=== PATIENT | female | born 1970 | race Caucasian/White ===

== ENCOUNTER 2017-12-02 18:03 | Observation (INO) | payer SELFPAY ==
[~2017-12-02] VITALS: Ht 149.9 cm; Wt 59.0 kg
[~2017-12-02 18:03] MED LIST: FIBER PO; OMEPRAZOLE40 MG PO; VITAMIN B12 INJ; VITAMIN D5000 UNIT PO
[2017-12-02] MEDS ORDERED: SODIUM CHLORIDE 0.9% 1000ML 1,000 ML IV STA (18:18)
[2017-12-02] MEDS ORDERED: MORPHINE SULFATE INJ 4 MG/ML INJ IV STA (18:18)
[2017-12-02] MEDS ORDERED: IBUPROFEN 400 MG TAB PO STA (18:18)
[2017-12-02] MEDS ORDERED: ONDANSETRON HCL INJ 2 MG/ML VIAL IV STA (18:18)
[2017-12-02] MEDS ORDERED: LIDOCAINE VISC 2% SOLN 15 ML UDC PO ONE (18:30)
[2017-12-02] MEDS ORDERED: MAGNESIUM/ALUMINUM/SIMETHICONE 30 ML UDC PO ONE (18:30)
--- NOTE | 2017-12-02 18:45 | Diagnostic Imaging Report ---
PROCEDURE: A single AP view of the chest. COMPARISON: None. INDICATIONS: EPIGASTRIC PAIN FEW DAYS, BLOATING FINDINGS: Lines/tubes: None. Lungs: The lungs are well inflated and clear. There is no evidence of pneumonia or pulmonary edema. Pleura: There is no pleural effusion or pneumothorax. Heart and mediastinum: The heart and the mediastinum are unremarkable. Bones: No acute bony abnormality. IMPRESSION: 1. No acute cardiopulmonary abnormalities. Zachary Joshua M.D. Dictated by: Zachary Joshua M.D. on 12/02/2017 at 18:50 Electronically approved by: Zachary Joshua M.D. on 12/02/2017 at 18:50
[2017-12-02 19:01] LABS: BASOPHILS # (AUTO) 0.1 (0.0-0.1); BASOPHILS % 0.5 % (0.0-1.0); EOSINOPHILS # (AUTO) 0.2 (0.0-0.4); EOSINOPHILS % 1.8 % (0.0-6.0); HEMATOCRIT 41.7 % (34.2-44.1); HEMOGLOBIN 14.9 g/dL (12.0-16.0); LYMPHOCYTES # (AUTO) 2.1 (1.0-3.2); LYMPHOCYTES % 20.3 % (18.0-39.1); MEAN CORPUSCULAR HEMOGLOBIN 40.9 pg (28-32); MEAN CORPUSCULAR HGB CONC 35.7 g/dL (31-35); MEAN CORPUSCULAR VOLUME 114.6 fL (81-99); MONOCYTES # (AUTO) 0.7 (0.2-0.8); MONOCYTES % 6.5 % (4.4-11.3); NEUTROPHILS # (AUTO) 7.3 (2.1-6.9); NEUTROPHILS % 70.5 % (38.7-80.0); PLATELET COUNT 280 x10e3/uL (140-360); RED BLOOD COUNT 3.64 x10e6/uL (3.6-5.1); RED CELL DISTRIBUTION WIDTH 12.7 % (11.7-14.4)
[2017-12-02 19:08] LABS: CLARITY,URINE HAZY (CLEAR); COLOR,URINE AMBER (YELLOW)
[2017-12-02 19:09] LABS: BILIRUBIN,URINE 2+ (NEGATIVE); KETONES,URINE 1+ (NEGATIVE); LEUKOCYTE ESTERASE ,URINE NEGATIVE (NEGATIVE); NITRITE,URINE NEGATIVE (NEGATIVE); PROTEIN,URINE DIPSTICK TRACE (NEGATIVE); URINE UROBILINOGEN 1 mg/dL (0.2 - 1)
[2017-12-02 19:10] LABS: PREGNANCY TEST, URINE NEGATIVE (NEGATIVE)
[2017-12-02 19:16] LABS: INR 1.02; PROTHROMBIN TIME 12.6 seconds (11.9-14.5)
[2017-12-02 19:17] LABS: PARTIAL THROMBOPLASTIN TIME 25.2 seconds (23.8-35.5)
[2017-12-02 19:17] LABS: EPITHELIAL CELLS,URINE MANY /LPF
[2017-12-02 19:18] LABS: BACTERIA,URINE MODERATE /HPF; RBC,URINE 0-5 /HPF (0-5); WBC,URINE (MAN) 0-5 /HPF (0-5)
[2017-12-02 20:30] LABS: ALANINE AMINOTRANSFERASE 104 IU/L (0-55); ALBUMIN 3.3 g/dL (3.5-5.0); ALBUMIN/GLOBULIN RATIO 0.9 (0.8-2.0); ALKALINE PHOSPHATASE 102 IU/L (40-150); AMYLASE 67 U/L (25-125); BLOOD UREA NITROGEN 6 mg/dL (7-26); BUN/CREATININE RATIO 9 (6-25); CARBON DIOXIDE 28 mmol/L (22-29); CHLORIDE 98 mmol/L (98-107); CREATINE KINASE 50 IU/L (29-168); CREATININE, SERUM 0.68 mg/dL (0.57-1.11); EST GLOMERULAR FILTRATION RATE > 60 ML/MIN (60-); GLUCOSE 97 mg/dL (74-118); LIPASE 164 U/L (8-78); SODIUM 140 mmol/L (136-145)
[2017-12-02] MEDS: BELLADONNA ALK/PHENOBARBITAL 5 ML UDC PO SCH (21:07)
--- NOTE | 2017-12-02 21:47 | Diagnostic Imaging Report ---
EXAM: Right Upper Quadrant Ultrasound INDICATION: Abdominal pain COMPARISON: None. TECHNIQUE: Transverse and longitudinal images of the right upper abdomen were obtained. FINDINGS: Liver: Size: 16.2 cm in the right midclavicular line, large Appearance: Increased echogenicity, smooth contour Mass: No focal masses Gallbladder: Stones/Sludge: None Wall: 0.2 cm Appearance: No wall thickening, pericholecystic fluid or hydrops. Sonographic Davies's Sign: Negative Bile Ducts: Intrahepatic Ducts: No dilatation Extrahepatic Ducts: Common bile duct measures 0.3 cm, no dilatation Pancreas: Visualized portions of the pancreatic head, neck and proximal body are normal. Kidneys: Length: Right 8.4 cm Echogenicity: Normal Collecting System: No hydronephrosis Stone: None Cyst/Mass: None Vessels: Aorta: Visualized portions are normal Inferior Vena Cava: Visualized portions are normal Main Portal Vein: 0.8 cm, normal size with hepatopetal flow. Free Fluid: No ascites or pleural effusion IMPRESSION: Hepatomegaly and diffuse hepatic steatosis. Signed by: Dr. Roly Moseley M.D. on 12/02/2017 9:44 PM
[2017-12-02] MEDS ORDERED: SODIUM CHLORIDE 0.9% 50ML 50 ML ONE (22:35)
[2017-12-02] MEDS ORDERED: IOPAMIDOL 370 MG/ML 200 ML INFUS..BTL INJ ONE (22:35)
--- NOTE | 2017-12-02 22:38 | Diagnostic Imaging Report ---
EXAM: CT Abdomen and Pelvis WITH contrast INDICATION: DrSammi Otitis/appendicitis/cholecystitis. COMPARISON: None. TECHNIQUE: Abdomen and pelvis were scanned utilizing a multidetector helical scanner from the lung base to the pubic symphysis after administration of IV contrast. Coronal and sagittal reformations were obtained. Routine protocol was performed. Scan was performed when during portal venous phase. IV CONTRAST: 100 mL of Isovue-370 ORAL CONTRAST: Water RADIATION DOSE: Total DLP: 255.1 mGy*cm Estimated effective dose: (DLP x 0.015 x size factor) mSv COMPLICATIONS: None FINDINGS: LINES and TUBES: None. LOWER THORAX: Unremarkable HEPATOBILIARY: The liver is diffuse hypodense compared to the spleen, consistent with diffuse hepatic diffuse hepatic steatosis. No focal hepatic lesions. No biliary ductal dilation. GALLBLADDER: No radio-opaque stones or sludge. No wall thickening. SPLEEN: No splenomegaly. PANCREAS: No focal masses or ductal dilatation. Minimal peripancreatic (head of the pancreas) and periduodenal fat stranding. ADRENALS: No adrenal nodules KIDNEYS/URETERS: Kidneys enhance symmetrically. No hydronephrosis. No cystic or solid mass lesions. No stones. GI TRACT: No abnormal distention, wall thickening, or evidence of bowel obstruction. Appendix is normal. PELVIC ORGANS/BLADDER: Unremarkable. LYMPH NODES: No lymphadenopathy. VESSELS: Unremarkable. PERITONEUM / RETROPERITONEUM: Periduodenal fat stranding. No evidence of free peritoneal fluid or air. BONES: Unremarkable. SOFT TISSUES: Unremarkable. IMPRESSION: 1. Diffuse hepatic steatosis. 2. Subtle chris duodenal fat stranding that extends along the pancreaticoduodenal groove is suggestive of inflammatory process. These can be seen on patients with early edematous pancreatitis or duodenitis. Signed by: Dr. Roly Moseley M.D. on 12/02/2017 10:35 PM
[2017-12-02] MEDS ORDERED: ONDANSETRON HCL INJ 2 MG/ML VIAL IV PRN (23:00)
[2017-12-02] MEDS ORDERED: HYDROMORPHONE 1MG/1ML INJ IV PRN (23:00)
[2017-12-02] MEDS ORDERED: POTASSIUM CHLORIDE 20MEQ/100ML 100 ML IV STA ×2 (23:56)
[2017-12-03] VITALS (7 sets, daily range): BP systolic 125–167; BP diastolic 79–96
[2017-12-03 05:06] LABS: BASOPHILS % 0.5 % (0.0-1.0); EOSINOPHILS # (AUTO) 0.4 (0.0-0.4); HEMATOCRIT 34.4 % (34.2-44.1); HEMOGLOBIN 12.3 g/dL (12.0-16.0); LYMPHOCYTES # (AUTO) 2.2 (1.0-3.2); LYMPHOCYTES % 28.5 % (18.0-39.1); MEAN CORPUSCULAR HEMOGLOBIN 41.1 pg (28-32); MEAN CORPUSCULAR HGB CONC 35.8 g/dL (31-35); MEAN CORPUSCULAR VOLUME 115.1 fL (81-99); MONOCYTES # (AUTO) 0.6 (0.2-0.8); MONOCYTES % 7.8 % (4.4-11.3); NEUTROPHILS # (AUTO) 4.4 (2.1-6.9); NEUTROPHILS % 57.8 % (38.7-80.0); PLATELET COUNT 222 x10e3/uL (140-360); RED BLOOD COUNT 2.99 x10e6/uL (3.6-5.1); RED CELL DISTRIBUTION WIDTH 12.6 % (11.7-14.4)
[2017-12-03 05:39] LABS: ALANINE AMINOTRANSFERASE 68 IU/L (0-55); ALBUMIN 2.5 g/dL (3.5-5.0); ALKALINE PHOSPHATASE 74 IU/L (40-150); AMYLASE 56 U/L (25-125); ANION GAP 13.5 mmol/L (8-16); BLOOD UREA NITROGEN 6 mg/dL (7-26); BUN/CREATININE RATIO 10 (6-25); CALCIUM 7.5 mg/dL (8.4-10.2); CARBON DIOXIDE 26 mmol/L (22-29); CHLORIDE 103 mmol/L (98-107); CREATININE, SERUM 0.59 mg/dL (0.57-1.11); EST GLOMERULAR FILTRATION RATE > 60 ML/MIN (60-); GLUCOSE 82 mg/dL (74-118); LIPASE 110 U/L (8-78); POTASSIUM 3.5 mmol/L (3.5-5.1); SODIUM 139 mmol/L (136-145)
[2017-12-03 06:51] LABS: ALBUMIN 2.5 g/dL (3.5-5.0); BILIRUBIN,DIRECT 0.7 mg/dL (0.0-0.5); CHOL/HDL RATIO 4.9 (3.0-3.6)
--- NOTE | 2017-12-03 08:09 | History and Physical ---
PRIMARY CARE PHYSICIAN: Unknown. CHIEF COMPLAINT: Epigastric pain times 1 day. HISTORY OF PRESENT ILLNESS: This is a 47-year-old woman with a history of alcohol use, about 3 to 4 beers a day, now transitioning to mixed drinks daily, developing epigastric pain. She was found to have acute pancreatitis. Also had elevated LFTs. Imaging of the liver and gallbladder is still pending. Initial CT scan did not show any gallstones. She was admitted for further evaluation and management. PAST MEDICAL HISTORY: Alcohol abuse. Cigarette abuse. GERD. PAST SURGICAL HISTORY: , tubal ligation. ALLERGIES: PER ELECTRONIC MEDICAL RECORD. FAMILY/SOCIAL HISTORY: The patient drinks alcohol daily, about 3 to 4 beers a day, and now using mixed drinks. Also, smokes 2 pack of cigarettes per day. MEDICATIONS: Per electronic medical record. REVIEW OF SYSTEMS: Denies any dizziness, chest pain, shortness of breath, fever, chills, sweats, nausea, vomiting, diarrhea, leg pain, back pain. PHYSICAL EXAMINATION VITAL SIGNS: Have been reviewed. GENERAL APPEARANCE: A tired-appearing woman resting in bed. HEENT: Anicteric. Pupils are responsive to light. No oral lesions. CARDIOVASCULAR: Normal S1 and S2. LUNGS: Moderate breath sounds. ABDOMEN: Soft, nondistended. She has minimal tenderness in the epigastrium. Davies sign is negative. EXTREMITIES: No edema. SKIN: Dry. PSYCHIATRIC: Normal affect. LABS: Reviewed. MEDICATIONS: Reviewed. ASSESSMENT: This is a 47-year-old woman. 1. Acute pancreatitis. 2. Hypokalemia. 3. Acute transaminitis. 4. Hepatomegaly. 5. Alcoholic pancreatitis. 6. Cigarette abuse. 7. Gastroesophageal reflux disease. PLAN 1. Rehydrate patient. 2. Follow up enzymes. 3. Follow up MRCP/ultrasound. 4. Counseling on alcohol reduction or cessation. 5. Consider nicotine patch. 6. Restart PPI. 7. Prophylaxis: Use SCD. 8. Disposition: Keep n.p.o. and follow up labs. Job#: [id number]
[2017-12-03] MEDS: SODIUM CHLORIDE 0.9% 1000ML 1,000 ML IV SCH ×6 (08:17→20:33)
[2017-12-03] MEDS: PANTOPRAZOLE 40 MG 10ML VIAL IV SCH (08:17)
[2017-12-03] MEDS: BELLADONNA ALK/PHENOBARBITAL 5 ML UDC PO SCH ×3 (08:21→20:33)
[2017-12-04] VITALS (7 sets, daily range): BP systolic 138–167; BP diastolic 70–96
[2017-12-04] MEDS: SODIUM CHLORIDE 0.9% 1000ML 1,000 ML IV SCH ×3 (00:47→08:34)
[2017-12-04 07:17] LABS: POTASSIUM 3.7 mmol/L (3.5-5.1)
[2017-12-04] MEDS: PANTOPRAZOLE 40 MG 10ML VIAL IV SCH (08:33)
[2017-12-04] MEDS: BELLADONNA ALK/PHENOBARBITAL 5 ML UDC PO SCH ×2 (08:33→15:24)
[2017-12-04] MEDS ORDERED: ZOFRAN ODT4 MG PO (15:43)
== END 2017-12-04 18:45 | disposition home or self-care (01) ==
LOC: ER 18:03 → ERHOLD 22:48 → IMCU 12-03 00:30
PROVIDERS: ADMIT Internal Medicine; ATTEND Internal Medicine
DX: K85.20 Alcohol induced acute pancreatitis without necrosis or infection (principal); F10.10 Alcohol abuse, uncomplicated; E87.6 Hypokalemia; R74.0 Nonspecific elevation of levels of transaminase and lactic acid dehydrogenase [LDH]; R16.0 Hepatomegaly, not elsewhere classified; K21.9 Gastro-esophageal reflux disease without esophagitis; Z72.0 Tobacco use
CPT/HCPCS: 36415 ×3; 71045; 74177; 76705; 80053 ×2; 80061; 80076; 81001; 81025; 82150 ×2; 82550; 82553; 83690 ×3; 84132; 84484; 85025 ×2; 85610; 85730; 87086; 93005; 99284; G0378 ×3; J2270; J2405; J3480 ×2; J7030 ×3; Q9967

== ENCOUNTER 2018-03-17 09:15 | Inpatient (IN) | payer OTHER ==
[~2018-03-17] VITALS: Ht 149.9 cm; Wt 76.4 kg
[~2018-03-17 09:15] MED LIST changes: +ZOFRAN ODT4 MG PO
[2018-03-17] MEDS ORDERED: PANTOPRAZOLE 40 MG 10ML VIAL IV STA (09:29)
[2018-03-17] MEDS ORDERED: ONDANSETRON HCL INJ 2 MG/ML VIAL IV STA (09:29)
[2018-03-17] MEDS ORDERED: SODIUM CHLORIDE 0.9% 1000ML 1,000 ML IV STA ×2 (09:29→10:18)
[2018-03-17] MEDS ORDERED: MORPHINE SULFATE 2 MG/ML SYR IV STA (09:29)
[2018-03-17 09:52] LABS: BASOPHILS % 0.9 % (0.0-1.0); EOSINOPHILS # (AUTO) 0.3 (0.0-0.4); EOSINOPHILS % 6.1 % (0.0-6.0); HEMATOCRIT 35.9 % (34.2-44.1); HEMOGLOBIN 13.4 g/dL (12.0-16.0); LYMPHOCYTES # (AUTO) 1.9 (1.0-3.2); LYMPHOCYTES % 42.4 % (18.0-39.1); MEAN CORPUSCULAR HEMOGLOBIN 44.2 pg (28-32); MEAN CORPUSCULAR HGB CONC 37.3 g/dL (31-35); MEAN CORPUSCULAR VOLUME 118.5 fL (81-99); MONOCYTES # (AUTO) 0.3 (0.2-0.8); MONOCYTES % 7.2 % (4.4-11.3); NEUTROPHILS % 43.2 % (38.7-80.0); PLATELET COUNT 252 x10e3/uL (140-360); RED BLOOD COUNT 3.03 x10e6/uL (3.6-5.1); RED CELL DISTRIBUTION WIDTH 16.2 % (11.7-14.4)
--- NOTE | 2018-03-17 09:59 | Diagnostic Imaging Report ---
PROCEDURE: CHEST SINGLE (PORTABLE) COMPARISON: Patients [facility], DX, CHEST SINGLE (PORTABLE), 12/02/2017, 18:33. INDICATIONS: SHORTNESS OF BREATH, COUGH, CHEST PAIN FINDINGS: LUNGS: No consolidations or edema. PLEURA: No effusions or pneumothorax. HEART & MEDIASTINUM: The heart is within normal size-limits. BONES & SOFT TISSUES: No acute findings. CONCLUSION: No acute thoracic abnormality. Anibal Grant D.O. Dictated by: Anibal Grant D.O. on 03/17/2018 at 10:08 Electronically approved by: Anibal Grant D.O. on 03/17/2018 at 10:08
[2018-03-17 10:03] LABS: INR 0.87; PROTHROMBIN TIME 12.6 seconds (11.9-14.5)
[2018-03-17 10:07] LABS: PARTIAL THROMBOPLASTIN TIME 21.6 seconds (23.8-35.5)
[2018-03-17 10:13] LABS: ALANINE AMINOTRANSFERASE 67 IU/L (0-55); ALBUMIN 3.1 g/dL (3.5-5.0); ALBUMIN/GLOBULIN RATIO 1.1 (0.8-2.0); ALKALINE PHOSPHATASE 88 IU/L (40-150); ANION GAP 17.7 mmol/L (8-16); BLOOD UREA NITROGEN 5 mg/dL (7-26); BUN/CREATININE RATIO 8 (6-25); CALCIUM 8.5 mg/dL (8.4-10.2); CARBON DIOXIDE 27 mmol/L (22-29); CHLORIDE 99 mmol/L (98-107); CREATINE KINASE 44 IU/L (29-168); CREATININE, SERUM 0.65 mg/dL (0.57-1.11); EST GLOMERULAR FILTRATION RATE > 60 ML/MIN (60-); GLUCOSE 125 mg/dL (74-118); LIPASE 35 U/L (8-78); MAGNESIUM 1.6 MG/DL (1.3-2.1); SODIUM 141 mmol/L (136-145)
[2018-03-17 10:18] LABS: POTASSIUM 2.7 mmol/L (3.5-5.1)
[2018-03-17] MEDS ORDERED: CEFEPIME HCL 2 GM VIAL IV STA (10:18)
[2018-03-17] MEDS ORDERED: AZITHROMYCIN 500MG/NS 250 ML 250 ML IV ONE (10:40)
[2018-03-17 11:08] LABS: CLARITY,URINE CLEAR (CLEAR); COLOR,URINE YELLOW (YELLOW)
[2018-03-17 11:09] LABS: BILIRUBIN,URINE NEGATIVE (NEGATIVE); KETONES,URINE NEGATIVE (NEGATIVE); LEUKOCYTE ESTERASE ,URINE NEGATIVE (NEGATIVE); NITRITE,URINE NEGATIVE (NEGATIVE); PROTEIN,URINE DIPSTICK NEGATIVE (NEGATIVE); URINE UROBILINOGEN 0.2 mg/dL (0.2 - 1)
[2018-03-17 11:18] LABS: BACTERIA,URINE FEW /HPF; EPITHELIAL CELLS,URINE FEW /LPF; RBC,URINE 0-5 /HPF (0-5)
[2018-03-17] MEDS ORDERED: POTASSIUM CHLORIDE 20 MEQ TAB CR PO STA (11:34)
--- NOTE | 2018-03-17 12:07 | Diagnostic Imaging Report ---
EXAMINATION: CT of the chest with contrast, PE protocol. TECHNIQUE: Spiral CT images of the chest were performed from the lung apices through the level of the adrenal glands after the IV administration of 100 cc of Isovue 370. Thin section reconstructions were obtained with special concentration on the pulmonary arteries. Dose sparing technology was utilized. DLP: 484.53 mGy-cm COMPARISON: None CLINICAL HISTORY:Chest pain DISCUSSION: Lungs: No filling defects are identified in the main, right or left pulmonary arteries to their segmental and subsegmental levels, to suggest pulmonary embolism. Left pulmonary artery measures 2.3 cm and the right pulmonary artery measures 2.0 cm. Focal opacity in the superior segment of the right lower lobe (axial series 3; image 52-54) likely represents scarring or atelectasis peripherally. Interim six-month follow-up to ascertain stability or resolution would be of benefit. Airways: <The major airways are clear.> Pleura: <There is no evidence of pleural effusion or pneumothorax.> Heart and mediastinum: <The heart and the mediastinum are normal.> There is an 8 mm right paratracheal lymph node. Abdomen: There is diffuse fatty infiltration of the liver. Bones and soft tissues: <The thoracic skeleton is normal for age. The soft tissues are unremarkable.> IMPRESSION: 1. No evidence of pulmonary emboli. 2. Focal peripheral opacity involving the right lower lobe is nonspecific. 3. Interim follow-up CT in 6 months to maintain stability or resolution is recommended. 4. Diffuse fatty infiltration of the liver. Signed by: Dr. Anibal Grant DO on 03/17/2018 12:04 PM
[2018-03-17 12:39] LABS: AMPHETAMINES SCREEN,URINE NEGATIVE (NEGATIVE); BENZODIAZEPINES SCREEN,URINE NEGATIVE (NEGATIVE); PHENCYCLIDINE SCREEN,URINE NEGATIVE (NEGATIVE)
[2018-03-17] MEDS ORDERED: KCL 20MEQ/.9 SOD CHL 1,000 ML IV ONE (13:15)
[2018-03-17] MEDS ORDERED: METHYLPREDNISOLONE SOD SUCC 125 MG/2ML VIAL IV ONE (13:15)
[2018-03-17] MEDS ORDERED: ALBUTEROL SULF 0.083% NEB SOLN 3 ML NEB NEB SCH (13:15)
[2018-03-17] MEDS ORDERED: MORPHINE SULFATE 2 MG/ML SYR IV PRN (13:30)
[2018-03-17] MEDS ORDERED: ACETAMINOPHEN 325 MG TAB PO PRN ×2 (13:30→17:15)
[2018-03-17] MEDS ORDERED: KETOROLAC TROMETHAMINE 30 MG/ML VIAL IV PRN (13:30)
[2018-03-17] MEDS: ALBUTEROL SULF 0.083% NEB SOLN 3 ML NEB NEB SCH ×3 (14:45→22:45)
[2018-03-17 15:51] VITALS: BP 140/81
[2018-03-17 16:00] VITALS: BP 140/81
[2018-03-17] MEDS: CEFEPIME HCL 2 GM VIAL IV SCH ×2 (16:09→23:07)
[2018-03-17] MEDS: ONDANSETRON HCL INJ 2 MG/ML VIAL IV PRN (16:09)
[2018-03-17] MEDS: NICOTINE 14 MG/EA PATCH TOP SCH (16:09)
[2018-03-17] MEDS ORDERED: IOPAMIDOL 370 MG/ML 200 ML INFUS..BTL INJ ONE (16:11)
[2018-03-17] MEDS ORDERED: SODIUM CHLORIDE 0.9% 50ML 50 ML ONE (16:11)
[2018-03-17 16:41] LABS: CREATINE KINASE 41 IU/L (29-168)
[2018-03-17] MEDS ORDERED: HYDRALAZINE HCL 20 MG/ML VIAL IV PRN (17:15)
[2018-03-17] MEDS ORDERED: POTASSIUM CHLORIDE 20MEQ/100ML 200 ML IV ONE (17:15)
[2018-03-17] MEDS ORDERED: HYDROCODONE/APAP 5MG-325MG TAB PO PRN (17:15)
[2018-03-17] MEDS: FAMOTIDINE 20 MG TAB PO SCH (17:38)
[2018-03-17] MEDS ORDERED: IPRATROPIUM BROMIDE 0.02% 2.5 ML NEB NEB SCH (18:00)
[2018-03-17] MEDS: IPRATROPIUM BROMIDE 0.02% 2.5 ML NEB NEB SCH (18:45)
[2018-03-17] MEDS ORDERED: MAGNESIUM SULFATE 2GM/50ML 50 ML IV NR (19:30)
[2018-03-17 20:00] VITALS: BP 126/67
[2018-03-17] MEDS: MORPHINE SULFATE 2 MG/ML SYR IV PRN (21:47)
[2018-03-18] VITALS (7 sets, daily range): BP systolic 113–200; BP diastolic 62–95
[2018-03-18 00:28] LABS: CREATINE KINASE MB 0.8 ng/mL (0-5.0)
[2018-03-18] MEDS: IPRATROPIUM BROMIDE 0.02% 2.5 ML NEB NEB SCH ×4 (02:20→19:15)
[2018-03-18] MEDS: ALBUTEROL SULF 0.083% NEB SOLN 3 ML NEB NEB SCH ×5 (02:20→19:15)
[2018-03-18 03:30] LABS: BASOPHILS % 0.1 % (0.0-1.0); HEMATOCRIT 34.2 % (34.2-44.1); HEMOGLOBIN 11.9 g/dL (12.0-16.0); LYMPHOCYTES # (AUTO) 0.4 (1.0-3.2); LYMPHOCYTES % 4.3 % (18.0-39.1); MEAN CORPUSCULAR HEMOGLOBIN 44.2 pg (28-32); MEAN CORPUSCULAR HGB CONC 34.8 g/dL (31-35); MEAN CORPUSCULAR VOLUME 127.1 fL (81-99); MONOCYTES # (AUTO) 0.2 (0.2-0.8); MONOCYTES % 2.5 % (4.4-11.3); NEUTROPHILS # (AUTO) 8.8 (2.1-6.9); NEUTROPHILS % 92.4 % (38.7-80.0); PLATELET COUNT 248 x10e3/uL (140-360); RED BLOOD COUNT 2.69 x10e6/uL (3.6-5.1); RED CELL DISTRIBUTION WIDTH 17.1 % (11.7-14.4)
[2018-03-18 03:43] LABS: ALBUMIN 2.9 g/dL (3.5-5.0); BILIRUBIN,DIRECT 0.6 mg/dL (0.0-0.5)
[2018-03-18 04:06] LABS: ALANINE AMINOTRANSFERASE 51 IU/L (0-55); ALBUMIN 2.8 g/dL (3.5-5.0); ALBUMIN/GLOBULIN RATIO 0.9 (0.8-2.0); ALKALINE PHOSPHATASE 78 IU/L (40-150); BLOOD UREA NITROGEN 5 mg/dL (7-26); BUN/CREATININE RATIO 7 (6-25); CALCIUM 7.7 mg/dL (8.4-10.2); CARBON DIOXIDE 15 mmol/L (22-29); CHLORIDE 106 mmol/L (98-107); CHOL/HDL RATIO 4.1 (3.0-3.6); CHOLESTEROL 171 MD/DL (0-199); CREATININE, SERUM 0.69 mg/dL (0.57-1.11); EST GLOMERULAR FILTRATION RATE > 60 ML/MIN (60-); GLUCOSE 157 mg/dL (74-118); HDL CHOLESTEROL 42 MG/DL (40-60); LDL CHOLESTEROL 115 MG/DL (60-130); MAGNESIUM 1.9 MG/DL (1.3-2.1); SODIUM 137 mmol/L (136-145); TRIGLYCERIDES 68 MG/DL (0-149)
[2018-03-18] MEDS: CEFEPIME HCL 2 GM VIAL IV SCH ×3 (07:24→23:31)
[2018-03-18] MEDS: FAMOTIDINE 20 MG TAB PO SCH (07:24)
[2018-03-18] MEDS: MORPHINE SULFATE 2 MG/ML SYR IV PRN (07:24)
[2018-03-18] MEDS: AZITHROMYCIN 500MG/NS 250 ML 250 ML IV SCH (09:53)
[2018-03-18] MEDS ORDERED: CALCIUM GLUCONATE 10% INJ 9.3 MEQ in SODIUM CHLORIDE 0.9% 100 ML 100 ML IV ONE (12:00)
[2018-03-18] MEDS: GUAIFENESIN 600MG/DEXTROMETHORPHAN 30MG TABSR PO SCH ×2 (12:16→16:39)
[2018-03-18] MEDS: PANTOPRAZOLE 40 MG 10ML VIAL IV SCH ×2 (12:16→15:51)
[2018-03-18] MEDS: NICOTINE 14 MG/EA PATCH TOP SCH (12:16)
[2018-03-18] MEDS: HYDROCODONE/APAP 5MG-325MG TAB PO PRN (14:43)
--- NOTE | 2018-03-18 15:01 | Diagnostic Imaging Report ---
EXAMINATION: CT of the abdomen with contrast. TECHNIQUE: Spiral CT images of the abdomen were performed from the lung bases to the iliac crests after the intravenous administration of 100 cc of Isovue-370 and the oral administration of water. Coronal and sagittal reformatted images were obtained. COMPARISON: CT abdomen and pelvis with contrast 12/02/2017 CLINICAL HISTORY:Epigastric pain, nausea DISCUSSION: LOWER THORAX:Reticular and linear opacities compatible with subsegmental atelectasis in the dependent portions of the lower lobes. No pleural or pericardial effusion. HEPATOBILIARY: Hepatic parenchyma is diffusely hypoattenuating compatible with steatosis. High attenuation material within the gallbladder likely reflects vicarious biliary excretion of contrast material (CT scan of the chest with contrast performed 03/17/2018). SPLEEN: No splenomegaly. PANCREAS: No focal masses or ductal dilatation. ADRENALS: No adrenal nodules. KIDNEYS/URETERS: No hydronephrosis, stones, or solid mass lesions. PERITONEUM/RETROPERITONEUM: No free air or fluid. LYMPH NODES: No retroperitoneal or mesenteric lymphadenopathy. VESSELS: Abdominal aorta and major branch vessels are patent without aneurysmal dilatation or significant stenosis. Portal vein, splenic vein, and central superior mesenteric vein are patent. GI TRACT: There is concentric wall thickening and mucosal enhancement of the duodenum with adjacent retroperitoneal fluid and fat stranding for example on series 2 image 31 through 35. Visualized small bowel shows no dilatation to suggest obstruction. Normal appendix. Radiodense object in the stomach likely represents antacid or other metallic salt containing medication tablet. BONES AND SOFT TISSUE: No focal soft tissue abnormalities. No osseous destructive lesions. Bilateral L5 pars defects are again noted without spondylolisthesis. IMPRESSION: Mucosal enhancement and inflammatory change involving the duodenum, similar in appearance to that noted on the comparison examination. Differential diagnosis includes inflammatory duodenitis, peptic ulcer disease, or early pancreatitis involving the head and uncinate process. No perforation or drainable fluid collection. Upper endoscopy should be considered for further evaluation if not recently performed. Hepatic steatosis. Signed by: Dr. Valentín Urena M.D. on 03/18/2018 2:58 PM
[2018-03-18 15:08] LABS: BASOPHILS % 0.1 % (0.0-1.0); EOSINOPHILS % 0.1 % (0.0-6.0); HEMATOCRIT 31.6 % (34.2-44.1); HEMOGLOBIN 11.2 g/dL (12.0-16.0); LYMPHOCYTES # (AUTO) 1.5 (1.0-3.2); LYMPHOCYTES % 9.8 % (18.0-39.1); MEAN CORPUSCULAR HEMOGLOBIN 44.6 pg (28-32); MEAN CORPUSCULAR HGB CONC 35.4 g/dL (31-35); MEAN CORPUSCULAR VOLUME 125.9 fL (81-99); MONOCYTES # (AUTO) 0.7 (0.2-0.8); MONOCYTES % 4.7 % (4.4-11.3); NEUTROPHILS # (AUTO) 12.5 (2.1-6.9); NEUTROPHILS % 84.8 % (38.7-80.0); PLATELET COUNT 242 x10e3/uL (140-360); RED BLOOD COUNT 2.51 x10e6/uL (3.6-5.1); RED CELL DISTRIBUTION WIDTH 16.5 % (11.7-14.4)
[2018-03-18 15:31] LABS: ALANINE AMINOTRANSFERASE 44 IU/L (0-55); ALBUMIN 2.9 g/dL (3.5-5.0); ALBUMIN/GLOBULIN RATIO 1.1 (0.8-2.0); ALKALINE PHOSPHATASE 70 IU/L (40-150); ANION GAP 13.9 mmol/L (8-16); BLOOD UREA NITROGEN 5 mg/dL (7-26); BUN/CREATININE RATIO 8 (6-25); CALCIUM 8.4 mg/dL (8.4-10.2); CARBON DIOXIDE 24 mmol/L (22-29); CHLORIDE 101 mmol/L (98-107); CREATININE, SERUM 0.61 mg/dL (0.57-1.11); EST GLOMERULAR FILTRATION RATE > 60 ML/MIN (60-); GLUCOSE 107 mg/dL (74-118); POTASSIUM 3.9 mmol/L (3.5-5.1); SODIUM 135 mmol/L (136-145)
[2018-03-18] MEDS ORDERED: IOPAMIDOL 370 MG/ML 200 ML INFUS..BTL INJ ONE (17:40)
[2018-03-18] MEDS ORDERED: SODIUM CHLORIDE 0.9% 50ML 50 ML ONE (17:40)
[2018-03-18] MEDS ORDERED: HYDROMORPHONE 1MG/1ML INJ IV PRN (19:00)
[2018-03-18] MEDS: ONDANSETRON HCL INJ 2 MG/ML VIAL IV PRN (20:00)
[2018-03-18] MEDS: HYDROMORPHONE 2MG/ML 2 MG/ML ML IV PRN (20:00)
[2018-03-18] MEDS: PANTOPRAZOLE INJ 40 MG in SODIUM CHLORIDE 0.9% 50ML 50 ML IV SCH (20:00)
[2018-03-19] VITALS (7 sets, daily range): BP systolic 116–188; BP diastolic 84–109
[2018-03-19] MEDS: PANTOPRAZOLE INJ 40 MG in SODIUM CHLORIDE 0.9% 50ML 50 ML IV SCH ×4 (00:39→17:50)
[2018-03-19] MEDS: ALBUTEROL SULF 0.083% NEB SOLN 3 ML NEB NEB SCH ×7 (03:00→23:00)
[2018-03-19] MEDS: HYDROMORPHONE 2MG/ML 2 MG/ML ML IV PRN ×6 (03:09→22:30)
[2018-03-19] MEDS: ONDANSETRON HCL INJ 2 MG/ML VIAL IV PRN ×2 (03:09→22:30)
[2018-03-19 04:12] LABS: BASOPHILS % 0.1 % (0.0-1.0); EOSINOPHILS # (AUTO) 0.1 (0.0-0.4); EOSINOPHILS % 1.4 % (0.0-6.0); HEMATOCRIT 31.1 % (34.2-44.1); LYMPHOCYTES # (AUTO) 1.8 (1.0-3.2); LYMPHOCYTES % 19.3 % (18.0-39.1); MEAN CORPUSCULAR HEMOGLOBIN 44.2 pg (28-32); MEAN CORPUSCULAR HGB CONC 35.4 g/dL (31-35); MEAN CORPUSCULAR VOLUME 124.9 fL (81-99); MONOCYTES # (AUTO) 0.4 (0.2-0.8); MONOCYTES % 4.1 % (4.4-11.3); NEUTROPHILS % 74.8 % (38.7-80.0); PLATELET COUNT 239 x10e3/uL (140-360); RED BLOOD COUNT 2.49 x10e6/uL (3.6-5.1); RED CELL DISTRIBUTION WIDTH 16.2 % (11.7-14.4)
[2018-03-19 04:35] LABS: ALANINE AMINOTRANSFERASE 38 IU/L (0-55); ALBUMIN 2.9 g/dL (3.5-5.0); ALKALINE PHOSPHATASE 67 IU/L (40-150); ANION GAP 12.6 mmol/L (8-16); BLOOD UREA NITROGEN 7 mg/dL (7-26); BUN/CREATININE RATIO 13 (6-25); CALCIUM 8.4 mg/dL (8.4-10.2); CARBON DIOXIDE 24 mmol/L (22-29); CHLORIDE 104 mmol/L (98-107); CREATININE, SERUM 0.56 mg/dL (0.57-1.11); EST GLOMERULAR FILTRATION RATE > 60 ML/MIN (60-); GLUCOSE 94 mg/dL (74-118); POTASSIUM 3.6 mmol/L (3.5-5.1); SODIUM 137 mmol/L (136-145)
[2018-03-19 04:57] LABS: FERRITIN 791.9 ng/mL (4.63-204.00)
[2018-03-19 06:31] LABS: FOLATE 3.2 ng/mL (7.0-15.4)
[2018-03-19] MEDS: IPRATROPIUM BROMIDE 0.02% 2.5 ML NEB NEB SCH ×4 (06:50→19:15)
[2018-03-19] MEDS: CEFEPIME HCL 2 GM VIAL IV SCH ×2 (09:00→15:34)
[2018-03-19] MEDS: GUAIFENESIN 600MG/DEXTROMETHORPHAN 30MG TABSR PO SCH ×2 (09:00→17:00)
[2018-03-19] MEDS: AZITHROMYCIN 500MG/NS 250 ML 250 ML IV SCH (09:35)
[2018-03-19] MEDS ORDERED: SODIUM CHLORIDE 0.9% 250ML 250 ML ONE (09:52)
[2018-03-19] MEDS ORDERED: PROPOFOL IV EMULSION 10 MG/ML 20 ML VIAL ONE (15:15)
[2018-03-19] MEDS ORDERED: MIDAZOLAM HCL 2 MG/2 ML VIAL ONE (15:15)
[2018-03-19] MEDS ORDERED: FENTANYL CITRATE/PF 100MCG/2 ML INJ ONE (15:15)
[2018-03-19] MEDS: NICOTINE 14 MG/EA PATCH TOP SCH (15:34)
[2018-03-19] MEDS ORDERED: DONNATAL/LIDOCAINE/MAALOX 30 ML SUSP PO ONE (17:15)
--- NOTE | 2018-03-19 18:17 | Operative Report ---
DATE OF PROCEDURE: March 19, 2018 REFERRING PHYSICIAN: Dr. Isma Harkins PROCEDURE PERFORMED: Esophagogastroduodenoscopy with biopsies. INDICATIONS FOR EGD: Upper abdominal pain, nausea and vomiting. MEDICATION: Patient was done under MAC. Please see anesthesiologist's note. PROCEDURE: With the patient in the left lateral decubitus position, flexible fiberoptic Olympus gastroscope was introduced into the esophagus under direct visualization without any difficulty. There was some patchy erythema noted in distal esophagus. The scope was then advanced with ease into the stomach traversing a small sliding hiatal hernia. Mucosa overlying the antrum and the body revealed some patchy erythema and mild to moderate edema and biopsies were obtained and sent to stain for H. pylori. There was a moderate amount of retained undigested food in the stomach precluding visualization of the proximal body in the distal fundus along the greater curvature. The pylorus was of normal contour and shape. Was intubated with ease and the scope was advanced all the way to the 2nd portion of the duodenum. The scope was then withdrawn slowly. Mucosa overlying the proximal 2nd portion appeared to be within normal limits. There was some patchy erythema noted in the distal duodenal bulb. The scope was then withdrawn back into the stomach and retroflexed and the previously described retained undigested food stuff was also noted in the fundus and proximal body. The cardia appeared to be within normal limits. Whatever was visualized of the fundus also appeared to be within normal limits. The scope was then straightened out. The stomach was decompressed. Scope was subsequently withdrawn. Patient tolerated the procedure well. IMPRESSION: 1. Mild distal esophagitis. 2. Small sliding hiatal hernia. 3. Gastritis biopsied. Biopsy sent to stain for H. pylori. 4. Moderate amount of retained undigested food stuff precluding visualization of proximal body and part of the fundus. 5. Duodenitis. PLAN: Follow up histology. Continue PPI drip. Initiate clear liquid diet. Add Carafate 1 gram p.o. a.c. t.i.d. and nightly. At one time trial of GI cocktail to see if her upper tract symptoms are alleviated. Job#: [id number] GH cc:ISMA HARKINS MD
[2018-03-19] MEDS: SUCRALFATE 1 GM TAB PO SCH (20:01)
[2018-03-20] VITALS (7 sets, daily range): BP systolic 118–127; BP diastolic 65–76
[2018-03-20] MEDS: IPRATROPIUM BROMIDE 0.02% 2.5 ML NEB NEB SCH ×4 (01:00→19:00)
[2018-03-20] MEDS: PANTOPRAZOLE INJ 40 MG in SODIUM CHLORIDE 0.9% 50ML 50 ML IV SCH ×7 (01:00→21:00)
[2018-03-20] MEDS: ALBUTEROL SULF 0.083% NEB SOLN 3 ML NEB NEB SCH ×6 (03:00→23:50)
[2018-03-20 03:21] LABS: BASOPHILS % 0.2 % (0.0-1.0); EOSINOPHILS # (AUTO) 0.3 (0.0-0.4); EOSINOPHILS % 2.7 % (0.0-6.0); HEMOGLOBIN 11.5 g/dL (12.0-16.0); LYMPHOCYTES # (AUTO) 1.1 (1.0-3.2); LYMPHOCYTES % 11.3 % (18.0-39.1); MEAN CORPUSCULAR HEMOGLOBIN 45.1 pg (28-32); MEAN CORPUSCULAR HGB CONC 34.8 g/dL (31-35); MEAN CORPUSCULAR VOLUME 129.4 fL (81-99); MONOCYTES # (AUTO) 0.3 (0.2-0.8); MONOCYTES % 2.9 % (4.4-11.3); NEUTROPHILS % 82.3 % (38.7-80.0); PLATELET COUNT 183 x10e3/uL (140-360); RED BLOOD COUNT 2.55 x10e6/uL (3.6-5.1); RED CELL DISTRIBUTION WIDTH 16.1 % (11.7-14.4)
[2018-03-20 03:41] LABS: ANION GAP 15.1 mmol/L (8-16); BLOOD UREA NITROGEN 14 mg/dL (7-26); BUN/CREATININE RATIO 23 (6-25); CALCIUM 8.3 mg/dL (8.4-10.2); CARBON DIOXIDE 23 mmol/L (22-29); CHLORIDE 104 mmol/L (98-107); CREATININE, SERUM 0.61 mg/dL (0.57-1.11); EST GLOMERULAR FILTRATION RATE > 60 ML/MIN (60-); GLUCOSE 66 mg/dL (74-118); MAGNESIUM 1.8 MG/DL (1.3-2.1); POTASSIUM 4.1 mmol/L (3.5-5.1); SODIUM 138 mmol/L (136-145)
[2018-03-20] MEDS: ONDANSETRON HCL INJ 2 MG/ML VIAL IV PRN ×2 (04:26→22:45)
[2018-03-20] MEDS: HYDROMORPHONE 2MG/ML 2 MG/ML ML IV PRN ×3 (04:26→22:45)
[2018-03-20] MEDS: SUCRALFATE 1 GM TAB PO SCH ×4 (08:00→21:00)
[2018-03-20] MEDS: CEFEPIME HCL 2 GM VIAL IV SCH ×3 (08:00→16:00)
[2018-03-20] MEDS: GUAIFENESIN 600MG/DEXTROMETHORPHAN 30MG TABSR PO SCH ×2 (09:18→17:09)
[2018-03-20] MEDS: AZITHROMYCIN 500MG/NS 250 ML 250 ML IV SCH (09:18)
[2018-03-20] MEDS: FOLIC ACID 1 MG TAB PO SCH (09:18)
[2018-03-20] MEDS: POLYETHYLENE GLYCOL 3350 17 GM PACK PO SCH (10:36)
[2018-03-20] MEDS: DOCUSATE SODIUM 100 MG CAP PO SCH ×2 (10:36→17:09)
[2018-03-20] MEDS: NICOTINE 14 MG/EA PATCH TOP SCH (13:54)
[2018-03-20] MEDS: OYST-CAL-D 500MG TABLET PO SCH (17:09)
[2018-03-21] VITALS (7 sets, daily range): BP systolic 106–147; BP diastolic 58–83
[2018-03-21] MEDS: CEFEPIME HCL 2 GM VIAL IV SCH ×4 (01:00→23:47)
[2018-03-21] MEDS: IPRATROPIUM BROMIDE 0.02% 2.5 ML NEB NEB SCH ×5 (04:15→23:45)
[2018-03-21] MEDS: ALBUTEROL SULF 0.083% NEB SOLN 3 ML NEB NEB SCH ×6 (04:15→23:45)
[2018-03-21] MEDS: PANTOPRAZOLE INJ 40 MG in SODIUM CHLORIDE 0.9% 50ML 50 ML IV SCH ×5 (05:00→23:47)
[2018-03-21 05:07] LABS: BASOPHILS % 0.3 % (0.0-1.0); EOSINOPHILS # (AUTO) 0.2 (0.0-0.4); HEMATOCRIT 31.2 % (34.2-44.1); LYMPHOCYTES # (AUTO) 1.2 (1.0-3.2); LYMPHOCYTES % 14.8 % (18.0-39.1); MEAN CORPUSCULAR HEMOGLOBIN 44.7 pg (28-32); MEAN CORPUSCULAR HGB CONC 35.3 g/dL (31-35); MEAN CORPUSCULAR VOLUME 126.8 fL (81-99); MONOCYTES # (AUTO) 0.3 (0.2-0.8); MONOCYTES % 3.8 % (4.4-11.3); NEUTROPHILS # (AUTO) 6.2 (2.1-6.9); NEUTROPHILS % 78.6 % (38.7-80.0); PLATELET COUNT 191 x10e3/uL (140-360); RED BLOOD COUNT 2.46 x10e6/uL (3.6-5.1); RED CELL DISTRIBUTION WIDTH 15.1 % (11.7-14.4)
[2018-03-21] MEDS ORDERED: CYANOCOBALAMIN INJ 1,000 MCG/ML VIAL IM ONE (05:30)
[2018-03-21 05:42] LABS: ALANINE AMINOTRANSFERASE 25 IU/L (0-55); ALBUMIN 2.3 g/dL (3.5-5.0); ALKALINE PHOSPHATASE 66 IU/L (40-150); ANION GAP 13.4 mmol/L (8-16); BILIRUBIN,DIRECT 1.2 mg/dL (0.0-0.5); BLOOD UREA NITROGEN 13 mg/dL (7-26); BUN/CREATININE RATIO 25 (6-25); CALCIUM 8.4 mg/dL (8.4-10.2); CARBON DIOXIDE 24 mmol/L (22-29); CHLORIDE 102 mmol/L (98-107); CREATININE, SERUM 0.51 mg/dL (0.57-1.11); EST GLOMERULAR FILTRATION RATE > 60 ML/MIN (60-); GLUCOSE 71 mg/dL (74-118); MAGNESIUM 1.9 MG/DL (1.3-2.1); POTASSIUM 3.4 mmol/L (3.5-5.1); SODIUM 136 mmol/L (136-145)
[2018-03-21] MEDS ORDERED: FOLIC ACID 1 MG TAB PO ONE (05:45)
[2018-03-21] MEDS: HYDROMORPHONE 2MG/ML 2 MG/ML ML IV PRN ×2 (05:46→14:27)
[2018-03-21] MEDS: ONDANSETRON HCL INJ 2 MG/ML VIAL IV PRN (05:46)
[2018-03-21] MEDS ORDERED: POTASSIUM CHLORIDE 20 MEQ TAB CR PO STA (06:04)
[2018-03-21] MEDS: FLUCONAZOLE 200 MG/100 ML 100 ML IV SCH (06:15)
[2018-03-21] MEDS: DOCUSATE SODIUM 100 MG CAP PO SCH ×2 (08:27→16:39)
[2018-03-21] MEDS: CYANOCOBALAMIN INJ 1,000 MCG/ML VIAL IM SCH (08:27)
[2018-03-21] MEDS: SUCRALFATE 1 GM TAB PO SCH ×4 (08:27→21:17)
[2018-03-21] MEDS: FOLIC ACID 1 MG TAB PO SCH ×2 (08:27)
[2018-03-21] MEDS: AZITHROMYCIN 500MG/NS 250 ML 250 ML IV SCH (08:27)
[2018-03-21] MEDS: GUAIFENESIN 600MG/DEXTROMETHORPHAN 30MG TABSR PO SCH ×2 (08:28→16:40)
[2018-03-21] MEDS: POLYETHYLENE GLYCOL 3350 17 GM PACK PO SCH (08:28)
[2018-03-21] MEDS: OYST-CAL-D 500MG TABLET PO SCH ×2 (08:28→16:40)
[2018-03-21] MEDS: NICOTINE 14 MG/EA PATCH TOP SCH (14:28)
[2018-03-21] MEDS: HYDROCODONE/APAP 5MG-325MG TAB PO PRN (23:47)
[2018-03-22] VITALS (8 sets, daily range): BP systolic 107–135; BP diastolic 62–74
[2018-03-22] MEDS: PANTOPRAZOLE INJ 40 MG in SODIUM CHLORIDE 0.9% 50ML 50 ML IV SCH ×5 (02:18→22:07)
[2018-03-22] MEDS: ALBUTEROL SULF 0.083% NEB SOLN 3 ML NEB NEB SCH ×6 (03:00→23:45)
[2018-03-22] MEDS: HYDROMORPHONE 2MG/ML 2 MG/ML ML IV PRN ×3 (04:05→19:54)
[2018-03-22 04:18] LABS: BASOPHILS % 0.4 % (0.0-1.0); EOSINOPHILS # (AUTO) 0.2 (0.0-0.4); EOSINOPHILS % 2.7 % (0.0-6.0); HEMATOCRIT 27.4 % (34.2-44.1); HEMOGLOBIN 9.5 g/dL (12.0-16.0); LYMPHOCYTES # (AUTO) 0.9 (1.0-3.2); MEAN CORPUSCULAR HEMOGLOBIN 44.4 pg (28-32); MEAN CORPUSCULAR HGB CONC 34.7 g/dL (31-35); MONOCYTES # (AUTO) 0.5 (0.2-0.8); MONOCYTES % 6.6 % (4.4-11.3); NEUTROPHILS # (AUTO) 5.8 (2.1-6.9); NEUTROPHILS % 77.6 % (38.7-80.0); PLATELET COUNT 209 x10e3/uL (140-360); RED BLOOD COUNT 2.14 x10e6/uL (3.6-5.1); RED CELL DISTRIBUTION WIDTH 15.2 % (11.7-14.4)
[2018-03-22 04:32] LABS: ANION GAP 14.6 mmol/L (8-16); BLOOD UREA NITROGEN 9 mg/dL (7-26); BUN/CREATININE RATIO 18 (6-25); CALCIUM 8.3 mg/dL (8.4-10.2); CARBON DIOXIDE 21 mmol/L (22-29); CHLORIDE 100 mmol/L (98-107); CREATININE, SERUM 0.51 mg/dL (0.57-1.11); EST GLOMERULAR FILTRATION RATE > 60 ML/MIN (60-); POTASSIUM 3.6 mmol/L (3.5-5.1); SODIUM 132 mmol/L (136-145)
[2018-03-22 04:50] LABS: GLUCOSE 52 mg/dL (74-118)
[2018-03-22] MEDS ORDERED: SODIUM CHLORIDE 0.9% 250ML 250 ML ONE (06:07)
[2018-03-22] MEDS: FLUCONAZOLE 200 MG/100 ML 100 ML IV SCH (06:11)
[2018-03-22] MEDS: IPRATROPIUM BROMIDE 0.02% 2.5 ML NEB NEB SCH ×4 (07:00→23:45)
[2018-03-22] MEDS ORDERED: DEXTROSE 50% SYRINGE 50 ML IV PRN (07:15)
[2018-03-22] MEDS: SUCRALFATE 1 GM TAB PO SCH ×4 (08:41→20:35)
[2018-03-22] MEDS: POLYETHYLENE GLYCOL 3350 17 GM PACK PO SCH (08:56)
[2018-03-22] MEDS: AZITHROMYCIN 500MG/NS 250 ML 250 ML IV SCH (08:56)
[2018-03-22] MEDS: GUAIFENESIN 600MG/DEXTROMETHORPHAN 30MG TABSR PO SCH ×2 (08:56→16:13)
[2018-03-22] MEDS: CYANOCOBALAMIN INJ 1,000 MCG/ML VIAL IM SCH (08:56)
[2018-03-22] MEDS: FOLIC ACID 1 MG TAB PO SCH (08:56)
[2018-03-22] MEDS: CEFEPIME HCL 2 GM VIAL IV SCH ×2 (08:56→16:13)
[2018-03-22] MEDS: DOCUSATE SODIUM 100 MG CAP PO SCH ×2 (08:56→16:13)
[2018-03-22] MEDS: OYST-CAL-D 500MG TABLET PO SCH ×2 (08:56→16:13)
[2018-03-22] MEDS: NICOTINE 14 MG/EA PATCH TOP SCH (13:16)
[2018-03-23] VITALS: BP 129/78
[2018-03-23] MEDS: CEFEPIME HCL 2 GM VIAL IV SCH ×3 (00:05→17:22)
[2018-03-23] MEDS: ALBUTEROL SULF 0.083% NEB SOLN 3 ML NEB NEB SCH ×4 (03:00→15:00)
[2018-03-23 04:00] VITALS: BP 124/76
[2018-03-23] MEDS: PANTOPRAZOLE INJ 40 MG in SODIUM CHLORIDE 0.9% 50ML 50 ML IV SCH (04:00)
[2018-03-23] MEDS: HYDROMORPHONE 2MG/ML 2 MG/ML ML IV PRN ×2 (04:06→10:39)
[2018-03-23 04:43] LABS: BASOPHILS # (AUTO) 0.1 (0.0-0.1); BASOPHILS % 0.6 % (0.0-1.0); EOSINOPHILS # (AUTO) 0.2 (0.0-0.4); EOSINOPHILS % 2.3 % (0.0-6.0); HEMATOCRIT 26.6 % (34.2-44.1); HEMOGLOBIN 9.5 g/dL (12.0-16.0); LYMPHOCYTES # (AUTO) 0.9 (1.0-3.2); LYMPHOCYTES % 12.1 % (18.0-39.1); MEAN CORPUSCULAR HEMOGLOBIN 46.1 pg (28-32); MEAN CORPUSCULAR HGB CONC 35.7 g/dL (31-35); MEAN CORPUSCULAR VOLUME 129.1 fL (81-99); MONOCYTES % 13.2 % (4.4-11.3); NEUTROPHILS # (AUTO) 5.3 (2.1-6.9); NEUTROPHILS % 68.5 % (38.7-80.0); PLATELET COUNT 214 x10e3/uL (140-360); RED BLOOD COUNT 2.06 x10e6/uL (3.6-5.1); RED CELL DISTRIBUTION WIDTH 14.7 % (11.7-14.4)
[2018-03-23 05:01] LABS: ANION GAP 16.3 mmol/L (8-16); BLOOD UREA NITROGEN 7 mg/dL (7-26); BUN/CREATININE RATIO 15 (6-25); CALCIUM 8.5 mg/dL (8.4-10.2); CARBON DIOXIDE 20 mmol/L (22-29); CHLORIDE 100 mmol/L (98-107); CREATININE, SERUM 0.48 mg/dL (0.57-1.11); EST GLOMERULAR FILTRATION RATE > 60 ML/MIN (60-); GLUCOSE 65 mg/dL (74-118); POTASSIUM 3.3 mmol/L (3.5-5.1); SODIUM 133 mmol/L (136-145)
[2018-03-23] MEDS: FLUCONAZOLE 200 MG/100 ML 100 ML IV SCH (06:19)
[2018-03-23] MEDS: IPRATROPIUM BROMIDE 0.02% 2.5 ML NEB NEB SCH ×2 (07:00→11:51)
[2018-03-23] MEDS ORDERED: Calcium Carbonate PO (07:31)
[2018-03-23] MEDS ORDERED: ZOFRAN ODT4 MG PO (07:31)
[2018-03-23] MEDS ORDERED: FOLIC ACID1 MG PO (07:31)
[2018-03-23] MEDS ORDERED: CARAFATE1 GM PO (07:31)
[2018-03-23] MEDS ORDERED: TYLENOL WITH C1 EACH PO (07:31)
[2018-03-23] MEDS ORDERED: PANTOPRAZOLE SO40 MG PO (07:31)
[2018-03-23 08:00] VITALS: BP 142/68
[2018-03-23] MEDS: FOLIC ACID 1 MG TAB PO SCH (08:00)
[2018-03-23] MEDS: CYANOCOBALAMIN INJ 1,000 MCG/ML VIAL IM SCH (08:00)
[2018-03-23] MEDS: POLYETHYLENE GLYCOL 3350 17 GM PACK PO SCH (08:00)
[2018-03-23] MEDS: DOCUSATE SODIUM 100 MG CAP PO SCH ×2 (08:00→17:18)
[2018-03-23] MEDS: OYST-CAL-D 500MG TABLET PO SCH ×2 (08:00→17:18)
[2018-03-23] MEDS: SUCRALFATE 1 GM TAB PO SCH ×3 (08:00→17:18)
[2018-03-23] MEDS ORDERED: POTASSIUM CHLORIDE 20 MEQ TAB CR PO NR (08:00)
[2018-03-23] MEDS: GUAIFENESIN 600MG/DEXTROMETHORPHAN 30MG TABSR PO SCH ×2 (08:00→17:18)
[2018-03-23 12:00] VITALS: BP 118/72
[2018-03-23] MEDS: NICOTINE 14 MG/EA PATCH TOP SCH (13:15)
[2018-03-23 16:00] VITALS: BP 123/78
--- NOTE | 2018-03-23 19:32 | Discharge Summary ---
ADMISSION DIAGNOSES 1. Right lower lobe pneumonia. 2. Transaminitis. 3. Gastroesophageal reflux disease. 4. Gastritis with nausea. 5. Hypocalcemia. 6. Tobacco use. 7. Anemia. 8. Hypokalemia. DISCHARGE DIAGNOSES 1. Right lower lobe pneumonia. 2. Transaminitis. 3. Gastroesophageal reflux disease. 4. Gastritis with nausea. 5. Hypocalcemia. 6. Tobacco use. 7. Anemia. 8. Hypokalemia. 9. Mild distal esophagitis. 10. Small sliding hiatal hernia. 11. Duodenitis. 12. Hypoglycemia. 13. Hyponatremia. 14. Ruled out gastrointestinal bleed. 15. Ruled out urinary tract infection. HISTORY: The patient has a history of pancreatitis, gastritis, GERD, alcohol abuse, fatty liver, anxiety. PAST SURGICAL HISTORY: The patient has a surgical history of ectopic removal. FAMILY HISTORY: The patient's mom, aunts and uncles have cancer. The patient's mom had a stroke. SOCIAL HISTORY: The patient smokes 1 1/2 packs of chronic a day since she was 17 years old. She drinks 3 mixed drinks with shots about 4 or 5 days a week. She denies illicit drug use. HOSPITAL COURSE: A 47-year-old female complains of shortness of breath and chest tightness that began yesterday morning, a few hours after eating chips and salsa. The pain was in the right chest and radiated to her back. The nebs improved the pain and nothing worsened the pain. The patient has a chronic cough. She denies fever. The abdominal pain was epigastric. Nausea began this morning in the hospital. In the ER, the patient was started on Zithromax and cefepime, nebs and Mucinex. The patient's LFTs were elevated, but this is a chronic problem which seems to have improved since last hospitalization in November 2017. The patient was started on Protonix. GI consulted. Chest x-ray showed no thoracic abnormality. CT of the chest showed no evidence of PE, focal peripheral opacity involving the right lower lobe is nonspecific, diffuse fatty infiltration of the liver. CT of the abdomen showed hepatic steatosis and mucosal enhancement and inflammatory change involving the duodenum. The patient's blood cultures were negative. Urine culture contaminated. Sputum culture came back positive for Belem albicans. The patient was started on fluconazole. Stool for blood came back negative. The patient had an EGD on 03/19/2018. The patient was found to have mild distal esophagitis, small sliding hiatal hernia, gastritis, biopsied, moderate amount of retained undigested food and duodenitis. The patient was started on Carafate 1 gram p.o. q.c. t.i.d. and nightly. She was resumed on the Protonix drip during hospitalization. The patient is now tolerating food and the pain is controlled. The patient's folic acid was found to be low at 3.2. Her B12 was 257, which is within normal limits. The patient will discharge home with Tylenol No. 3, Os-Jonh, folic acid, Zofran, Protonix and . She will follow up with Dr. Zuleta in one week and primary care in one to two weeks. The patient understands discharge instructions and agrees to plan. Vital signs stable. The patient is afebrile. Dictated by: Jodi Greco NP ISMA REILLY MD Job#: [id number] GH
== END 2018-03-23 18:10 | disposition home or self-care (01) | DRG 178 ==
LOC: ER 09:15 → ERHOLD 13:21 → MED/SURG3 15:38
PROVIDERS: ADMIT Internal Medicine; ATTEND Internal Medicine
PROC: 0DB68ZX Excision of Stomach, Via Natural or Artificial Opening Endoscopic, Diagnostic (ICD-10-PCS; principal; 2018-03-19 16:42)
DX: B37.1 Pulmonary candidiasis (principal); J44.0 Chronic obstructive pulmonary disease with (acute) lower respiratory infection; K86.0 Alcohol-induced chronic pancreatitis; J44.1 Chronic obstructive pulmonary disease with (acute) exacerbation; E87.1 Hypo-osmolality and hyponatremia; E87.6 Hypokalemia; H55.00 Unspecified nystagmus; F41.9 Anxiety disorder, unspecified; Z80.9 Family history of malignant neoplasm, unspecified; Z82.3 Family history of stroke; F17.210 Nicotine dependence, cigarettes, uncomplicated; F10.10 Alcohol abuse, uncomplicated; R74.0 Nonspecific elevation of levels of transaminase and lactic acid dehydrogenase [LDH]; E83.51 Hypocalcemia; D64.9 Anemia, unspecified; K21.0 Gastro-esophageal reflux disease with esophagitis; K44.9 Diaphragmatic hernia without obstruction or gangrene; K29.70 Gastritis, unspecified, without bleeding; K29.80 Duodenitis without bleeding; K59.00 Constipation, unspecified; K70.0 Alcoholic fatty liver; E16.2 Hypoglycemia, unspecified
CPT/HCPCS: 36415; 43239; 71045; 71260; 74160; 80048; 80053; 80061; 80076; 80307; 81001; 82270; 82550; 82553; 82607; 82728; 82746; 82948; 83540; 83605; 83690; 83735; 84466; 84484; 85025; 85379; 85610; 85730; 87040; 87070; 87086; 87205; 88305; 88312; 93005; 94640; 99284; J0360; J0456; J0610; J0692; J1450; J1885; J2250; J2270; J2405; J2930; J3420; J3475; J3480; J7030; J7050; Q9967

== ENCOUNTER 2019-07-27 00:04 | Inpatient (IN) | payer SELFPAY ==
[~2019-07-27] VITALS: Ht 154.9 cm; Wt 61.2 kg
[~2019-07-27 00:04] MED LIST changes: +CARAFATE1 GM PO; +Calcium Carbonate PO; +FOLIC ACID1 MG PO; +PANTOPRAZOLE SO40 MG PO; +TYLENOL WITH C1 EACH PO
[2019-07-27] MEDS ORDERED: KETOROLAC TROMETHAMINE 30 MG/ML VIAL IV STA (01:26)
[2019-07-27] MEDS ORDERED: FAMOTIDINE 20 MG/2 ML VIAL IV STA (01:26)
[2019-07-27] MEDS ORDERED: MAALOX/LIDOCAINE/BENADRYL/NYST 30 ML BTL PO ONE (01:30)
[2019-07-27 01:47] LABS: CLARITY,URINE HAZY (CLEAR); COLOR,URINE AMBER (YELLOW)
[2019-07-27 01:48] LABS: KETONES,URINE TRACE (NEGATIVE); LEUKOCYTE ESTERASE ,URINE NEGATIVE (NEGATIVE); NITRITE,URINE NEGATIVE (NEGATIVE); PROTEIN,URINE DIPSTICK 2+ (NEGATIVE)
[2019-07-27 01:50] LABS: AMPHETAMINES SCREEN,URINE NEGATIVE (NEGATIVE); BENZODIAZEPINES SCREEN,URINE NEGATIVE (NEGATIVE); PHENCYCLIDINE SCREEN,URINE NEGATIVE (NEGATIVE)
[2019-07-27 01:51] LABS: BACTERIA,URINE MODERATE /HPF; BILIRUBIN,URINE NEGATIVE (NEGATIVE); EPITHELIAL CELLS,URINE MANY /LPF; URINE UROBILINOGEN 0.2 mg/dL (0.2 - 1)
[2019-07-27 01:58] LABS: ALANINE AMINOTRANSFERASE 27 IU/L (0-55); ALKALINE PHOSPHATASE 99 IU/L (40-150); BLOOD UREA NITROGEN 9 mg/dL (7-26); BUN/CREATININE RATIO 11 (6-25); CALCIUM 9.2 mg/dL (8.4-10.2); CARBON DIOXIDE 26 mmol/L (22-29); CHLORIDE 87 mmol/L (98-107); CREATINE KINASE 73 IU/L (29-168); CREATININE, SERUM 0.81 mg/dL (0.57-1.11); EST GLOMERULAR FILTRATION RATE > 60 ML/MIN (60-); GLUCOSE 165 mg/dL (74-118); SODIUM 136 mmol/L (136-145)
[2019-07-27 02:02] LABS: CREATINE KINASE MB < 1.00 ng/mL (0-4.3)
[2019-07-27 02:09] LABS: BASOPHILS % 0.2 % (0.0-1.0); EOSINOPHILS % 0.1 % (0.0-6.0); HEMATOCRIT 50.1 % (34.2-44.1); HEMOGLOBIN 18.2 g/dL (12.0-16.0); LYMPHOCYTES # (AUTO) 0.6 (1.0-3.2); LYMPHOCYTES % 5.1 % (18.0-39.1); MEAN CORPUSCULAR HEMOGLOBIN 37.2 pg (28-32); MEAN CORPUSCULAR HGB CONC 36.3 g/dL (31-35); MEAN CORPUSCULAR VOLUME 102.5 fL (81-99); MONOCYTES # (AUTO) 0.7 (0.2-0.8); MONOCYTES % 5.7 % (4.4-11.3); NEUTROPHILS # (AUTO) 10.4 (2.1-6.9); NEUTROPHILS % 88.1 % (38.7-80.0); PLATELET COUNT 156 x10e3/uL (140-360); RED BLOOD COUNT 4.89 x10e6/uL (3.6-5.1)
[2019-07-27 02:23] LABS: LIPASE 643 U/L (8-78)
[2019-07-27] MEDS ORDERED: METOPROLOL TARTRATE INJ 1 MG/ML VIAL ONE (02:29)
[2019-07-27] MEDS ORDERED: SODIUM CHLORIDE 0.9% 1000ML 1,000 ML IV STA ×2 (02:42)
[2019-07-27] MEDS ORDERED: IOPAMIDOL 370 MG/ML 200 ML INFUS..BTL INJ ONE (03:16)
[2019-07-27] MEDS ORDERED: SODIUM CHLORIDE 0.9% 50ML 50 ML ONE (03:16)
[2019-07-27] MEDS ORDERED: METOPROLOL TARTRATE INJ 1 MG/ML VIAL IV ONE ×2 (03:30→08:45)
[2019-07-27] MEDS ORDERED: MORPHINE SULFATE INJ 4 MG/ML INJ 1ML ONE ×2 (03:38→08:20)
[2019-07-27] MEDS ORDERED: ONDANSETRON HCL INJ 2MG/ML 2ML 2 MG/ML VIAL ONE ×2 (03:39→08:20)
--- NOTE | 2019-07-27 04:51 | Diagnostic Imaging Report ---
EXAMINATION: CT of the abdomen and pelvis with contrast. TECHNIQUE: Spiral CT images of the abdomen and pelvis was performed from the lung bases to the pubic symphysis after the intravenous administration of 100 cc of Isovue-370 and the oral administration of water. Coronal and sagittal reformatted images were obtained. COMPARISON: CT abdomen and pelvis with contrast 03/18/2018. CLINICAL HISTORY:Abdominal pain. DISCUSSION: LOWER THORAX:Dependent atelectasis. HEPATOBILIARY: Hepatic steatosis. SPLEEN: No splenomegaly. PANCREAS: Mild pancreatic fullness with surrounding inflammatory changes. Normal enhancement. No focal masses or ductal dilatation. ADRENALS: No adrenal nodules. KIDNEYS/URETERS: No hydronephrosis, stones, or solid mass lesions. PELVIS: Unremarkable. PERITONEUM/RETROPERITONEUM: No free air or fluid. LYMPH NODES: No evidence of lymphadenopathy. VESSELS: Unremarkable. GI TRACT: There is concentric wall thickening and mucosal enhancement of the duodenum with adjacent retroperitoneal fluid and fat stranding . No evidence of bowel obstruction.. Normal appendix. BONES AND SOFT TISSUE: No focal soft tissue abnormalities. No osseous destructive lesions. Bilateral L5 pars defects are again noted without spondylolisthesis. IMPRESSION: Inflammatory changes of the pancreas and duodenum, similar to the prior study. Differential diagnosis includes early acute edematous pancreatitis, inflammatory duodenitis, and peptic ulcer disease. No perforation or drainable fluid collection. Hepatic steatosis. Signed by: Dr. Obi Navarrete MD on 07/27/2019 4:48 AM
[2019-07-27] MEDS: ONDANSETRON HCL INJ 2MG/ML 2ML 2 MG/ML VIAL IV STA ×2 (07:28→08:37)
[2019-07-27] MEDS ORDERED: ACETAMINOPHEN 325 MG TAB ONE (08:18)
[2019-07-27] MEDS: MORPHINE SULFATE INJ 4 MG/ML INJ 1ML IV PRN ×3 (08:36→20:29)
[2019-07-27] MEDS ORDERED: LORAZEPAM INJ 2 MG/ML VIAL IV ONE (08:45)
[2019-07-27] MEDS ORDERED: METOPROLOL TARTRATE INJ 1 MG/ML VIAL IV PRN (08:45)
[2019-07-27] MEDS ORDERED: ACETAMINOPHEN 325 MG TAB PO ONE (08:45)
[2019-07-27] MEDS ORDERED: LORAZEPAM INJ 2 MG/ML VIAL IV PRN (08:45)
[2019-07-27] MEDS ORDERED: MULTIVITAMINS- 12 INJECTION 10 ML, FOLIC ACID MDV 5 MG, THIAMINE HCL INJ 100 MG in SODI... IV ONE (09:30)
--- NOTE | 2019-07-27 11:18 | NUR ---
PT PULLED OFF ALL MONITORS, O2, IV AND WALKING AROUND. ALL REDONE
--- NOTE | 2019-07-27 15:41 | NUR ---
PT HAS PULLED OFF ALL MONITORS AND GOTTEN REDRESSED THREE TIMES STATING SHE DIDNT KNOW SHE WASNT SUPPOSE TOO. PTS STATES SHE DOES SEEM MORE INTERMITTANTLY CONFUSED SINCE BEING HERE. CALLED WOOD TANK ERECTOR FOR MD AND CT ORDERED.
--- NOTE | 2019-07-27 16:14 | NUR ---
RCD PT FROM OBSERVATION BY BED PT IS ALERT AND ORIENTED VITALS CHECKED PT RESTING ON BED VITALS CHECKED ADMISSION ASSESSMENT AND HISTORY DONE IV PATENT BY SALINE FLUSH INSTRUCTED PT AND FAMILY REGARDING HOSPITAL POLICY AND ROUTINE BED LOW AND LOCKED CALL LIGHT IN REACH
[2019-07-27] MEDS ORDERED: PANTOPRAZOLE SOD 40 MG TABEC PO ONE (16:15)
[2019-07-27 16:16] VITALS: BP 129/111
[2019-07-27] MEDS ORDERED: PANTOPRAZOLE 40 MG 10ML VIAL IV NR (16:30)
--- NOTE | 2019-07-27 16:35 | Diagnostic Imaging Report ---
Examination: CT BRAIN WO. CONTRAST History:Confusion. Altered mental status. Comparison studies:None Technique: Axial images were obtained from the skull base to the vertex. Coronal and sagittal images reconstructed from the axial data. Dose modulation, iterative reconstruction, and/or weight based adjustment of the mA/kV was utilized to reduce the radiation dose to as low as reasonably achievable. Intravenous contrast: None Findings: Scalp: No abnormalities. Bones: No fractures, blastic or lytic lesions. Brain sulci: Mild volume loss for age. Ventricles: No hydrocephalus. Extra-axial space: No abnormalities. Parenchyma: No masses, hemorrhage, or acute or chronic cortical based vascular insults. Sellar/suprasellar region: No abnormalities. Craniocervical junction: Patent foramen magnum. No Chiari one malformation. Incidental findings: None. Impression: No intracranial abnormalities. Signed by: Dr. Janessa Monteiro M.D. on 07/27/2019 4:32 PM
[2019-07-27 17:28] VITALS: BP 129/71
[2019-07-27] MEDS ORDERED: ALBUTEROL/IPRATROPIUM 3 ML NEB NEB PRN (17:30)
[2019-07-27] MEDS: [UNRECOGNIZED DRUG - OTHER] IV SCH (17:42)
[2019-07-27] MEDS: MULTIVITAMINS IV SCH (17:42)
[2019-07-27] MEDS: THIAMINE HCL IV SCH (17:42)
[2019-07-27] MEDS: FOLIC ACID IV SCH (17:42)
[2019-07-27] MEDS: ALBUTEROL/IPRATROPIUM 3 ML NEB NEB SCH (18:00)
--- NOTE | 2019-07-27 18:43 | NUR ---
PT RESTING ON BED BED SIDE REPORT GIVEN TO ONCOMING NURSE
--- NOTE | 2019-07-27 19:00 | NUR ---
RECEIVED PATIENT IN BEDSIDE SHIFT REPORT. PATIENT RESTING IN BED AT THIS TIME, PAIN REPORTED /. NO S&S OF DISTRESS. IV RUNNING TO R HAND 20G AT 125ML/HR. TELE MONITOR ON. BED LOCKED IN LOWEST POSITION, SIDE RAILS UPX2, CALL LIGHT IN REACH.
[2019-07-27 20:14] VITALS: BP 159/116
[2019-07-27] MEDS: HYDRALAZINE HCL 20 MG/ML VIAL IV PRN (20:28)
[2019-07-27] MEDS: ONDANSETRON HCL INJ 2MG/ML 2ML 2 MG/ML VIAL IV PRN (20:29)
[2019-07-27 20:39] VITALS: BP 159/116
--- NOTE | 2019-07-27 21:30 | NUR ---
MD GARCIADAD IN TO SEE PATIENT. NO NEW ORDERS AT THIS TIME.
--- NOTE | 2019-07-27 23:55 | NUR ---
PATIENT'S SPO2 NOTED TO BE IN MID-80S, NC@3L APPLIED, INCREASED TO 91%. PATIENT IS A SMOKER, SPO2 ON RA AT 1999 WAS 91%. WILL CONTINUE TO MONITOR.
[2019-07-28] VITALS (8 sets, daily range): BP systolic 117–141; BP diastolic 69–96
--- NOTE | 2019-07-28 00:30 | NUR ---
PATIENT'S HR NOTED TO BE 119 WITH 0000 VITALS, SINUS TACH. PATIENT IS ASYMPTOMATIC, REPORTS SHE DOES NOT FEEL ANXIOUS, BUT DOES HAVE SOME MODERATE PAIN. STATES IT IS PROBABLY HIGH BECAUSE SHE IS MOVING A LOT IN THE BED. WILL CONTINUE TO MONITOR.
[2019-07-28] MEDS: ALBUTEROL/IPRATROPIUM 3 ML NEB NEB SCH ×4 (01:00→20:25)
[2019-07-28] MEDS: MORPHINE SULFATE INJ 4 MG/ML INJ 1ML IV PRN ×5 (02:00→23:15)
[2019-07-28] MEDS: FOLIC ACID IV SCH ×3 (03:27→15:39)
[2019-07-28] MEDS: THIAMINE HCL IV SCH ×3 (03:27→15:39)
[2019-07-28] MEDS: MULTIVITAMINS IV SCH ×3 (03:27→15:39)
[2019-07-28] MEDS: [UNRECOGNIZED DRUG - OTHER] IV SCH ×3 (03:27→15:39)
[2019-07-28 05:43] LABS: BASOPHILS % 0.4 % (0.0-1.0); EOSINOPHILS # (AUTO) 0.2 (0.0-0.4); EOSINOPHILS % 1.9 % (0.0-6.0); HEMATOCRIT 41.3 % (34.2-44.1); HEMOGLOBIN 13.8 g/dL (12.0-16.0); LYMPHOCYTES % 23.7 % (18.0-39.1); MEAN CORPUSCULAR HEMOGLOBIN 36.6 pg (28-32); MEAN CORPUSCULAR HGB CONC 33.4 g/dL (31-35); MEAN CORPUSCULAR VOLUME 109.5 fL (81-99); MONOCYTES # (AUTO) 0.4 (0.2-0.8); MONOCYTES % 4.5 % (4.4-11.3); NEUTROPHILS # (AUTO) 5.9 (2.1-6.9); NEUTROPHILS % 69.1 % (38.7-80.0); PLATELET COUNT 100 x10e3/uL (140-360); RED BLOOD COUNT 3.77 x10e6/uL (3.6-5.1); RED CELL DISTRIBUTION WIDTH 13.7 % (11.7-14.4)
[2019-07-28 06:02] LABS: ALANINE AMINOTRANSFERASE 32 IU/L (0-55); ALBUMIN 2.9 g/dL (3.5-5.0); ALKALINE PHOSPHATASE 70 IU/L (40-150); ANION GAP 12.4 mmol/L (8-16); BLOOD UREA NITROGEN 10 mg/dL (7-26); BUN/CREATININE RATIO 15 (6-25); CALCIUM 7.1 mg/dL (8.4-10.2); CARBON DIOXIDE 30 mmol/L (22-29); CHLORIDE 100 mmol/L (98-107); CREATININE, SERUM 0.66 mg/dL (0.57-1.11); EST GLOMERULAR FILTRATION RATE > 60 ML/MIN (60-); GLUCOSE 65 mg/dL (74-118); LIPASE 116 U/L (8-78); MAGNESIUM 1.2 MG/DL (1.3-2.1); PHOSPHORUS 2.2 MG/DL (2.3-4.7); POTASSIUM 3.4 mmol/L (3.5-5.1); SODIUM 139 mmol/L (136-145)
[2019-07-28 06:33] LABS: CHOL/HDL RATIO 3.4 (3.0-3.6)
[2019-07-28 06:52] LABS: THYROID STIMULATING HORMONE 4.917 uIU/mL (0.350-4.940)
[2019-07-28] MEDS ORDERED: PANTOPRAZOLE SOD 40 MG TABEC PO SCH (07:30)
[2019-07-28] MEDS: ONDANSETRON HCL INJ 2MG/ML 2ML 2 MG/ML VIAL IV PRN (07:39)
[2019-07-28] MEDS ORDERED: MAGNESIUM SULFATE 2GM/50ML 100 ML IV ONE (09:00)
[2019-07-28] MEDS: PANTOPRAZOLE 40 MG 10ML VIAL IV SCH (09:35)
[2019-07-28] MEDS ORDERED: POTASSIUM PHOSPHATE 20 MM in SODIUM CHLORIDE 0.9% 250ML 250 ML IV ONE (13:15)
[2019-07-28] MEDS ORDERED: LORAZEPAM 1 MG TAB PO PRN (13:15)
--- NOTE | 2019-07-28 15:54 | Consultation ---
DATE OF CONSULTATION: 07/28/2019 Psychiatric Consultation REASON FOR CONSULTATION: To evaluate the patient's mood. HISTORY OF PRESENT ILLNESS: The patient is a 49-year-old female, admitted to the hospital for pancreatitis. Psychiatric consultation is called to evaluate the patient's mood. As per medical record, the patient has history of pancreatitis, hypokalemia, chest pain, pneumonia, and COPD exacerbation. Upon evaluation today, the patient is found to be in the room. She is alert, awake, and oriented to situation. The patient claims that she is feeling depressed due to life in general. Denies any anxiety at this time. She reports feeling tired. She denies feeling hopeless or helpless. She denies any hallucination. She reported intermittent sleep and appetite problem. She does not elicit any paranoia or delusional thinking at this time. She is calm and is not showing any tremors at this time. Denies any suicidal or homicidal ideation. PAST PSYCHIATRIC HISTORY: The patient denies past psych history. She denies past suicide attempts. She denies drug use, but admits to drinking 4 or 5 mixed drinks or liquor or beer everyday and drinks for 5 days a week. Her last drink was on Friday. FAMILY HISTORY: Denies. SOCIAL HISTORY: The patient states she lives with her . MENTAL STATUS EXAM: The patient is a middle-aged female. She is alert, awake, and oriented to situation. Mood is depressed. Affect is blunt. Psychomotor state is passive. She denies suicidal or homicidal ideation. Denies any hallucination. Thought process is concrete. No delusion elicited. Insight and judgment are fair. Memory appears to be grossly intact. CURRENT MEDICATIONS: 1. Morphine. 2. Vitamins. 3. Protonix. 4. Zofran. 5. Albuterol/ipratropium. 6. Hydralazine. 7. Potassium. 8. Metoprolol. 9. Ativan 1 mg q.4 hours IV as needed. 10. Acetaminophen. CURRENT LABORATORY DATA: WBC is 8.52, RBC 3.77, hemoglobin 13.8, hematocrit 41.3, and platelets 100. Chemistry; sodium 133, potassium 3.4, chloride 100, BUN 10, and creatinine 0.66. AST 96 and ALT 32. UDS is negative. Ethanol level was less than 10. ASSESSMENT: 1. Adjustment disorder with mixed mood. 2. Alcohol abuse/dependency. PLAN: 1. Continue with Ativan 1 mg IV q.4 hours as needed. 2. Add Ativan 1 mg p.o. q.4 hours as needed. 3. Add Topamax 25 mg p.o. daily. 4. Add Remeron 15 mg p.o. at bedtime. 5. Monitor for mood. 6. Supportive therapy. 7. Recommend total abstinence from alcohol and drugs. Thank you for consultation. Dictated by Yuridia Olivera PA-C Junito Jeronimo MD QTV/MODL /[id number]
--- NOTE | 2019-07-28 19:00 | NUR ---
RECEIVED PATIENT IN BEDSIDE SHIFT REPORT. PATIENT RESTING IN BED AT THIS TIME, STATES HER PAIN IS SLOWLY GETTING BETTER. IV FLUIDS RUNNING AT 150ML/HR TO R HAND 20G. NO S&S OF DISTRESS NOTED. BED LOCKED IN LOWEST POSITION, SIDE RAILS UPX2, CALL LIGHT IN REACH.
[2019-07-28] MEDS: MIRTAZAPINE 15 MG TAB PO SCH (21:00)
[2019-07-29] VITALS (7 sets, daily range): BP systolic 125–155; BP diastolic 65–98
[2019-07-29] MEDS: THIAMINE HCL IV SCH ×4 (01:01→16:12)
[2019-07-29] MEDS: MULTIVITAMINS IV SCH ×4 (01:01→16:12)
[2019-07-29] MEDS: FOLIC ACID IV SCH ×4 (01:01→16:12)
[2019-07-29] MEDS: [UNRECOGNIZED DRUG - OTHER] IV SCH ×4 (01:01→16:12)
[2019-07-29] MEDS: ALBUTEROL/IPRATROPIUM 3 ML NEB NEB SCH ×4 (02:40→20:25)
[2019-07-29] MEDS: MORPHINE SULFATE INJ 4 MG/ML INJ 1ML IV PRN ×5 (04:00→21:08)
[2019-07-29 05:28] LABS: BASOPHILS % 0.5 % (0.0-1.0); EOSINOPHILS # (AUTO) 0.1 (0.0-0.4); EOSINOPHILS % 2.2 % (0.0-6.0); HEMATOCRIT 35.2 % (34.2-44.1); HEMOGLOBIN 11.7 g/dL (12.0-16.0); LYMPHOCYTES # (AUTO) 1.3 (1.0-3.2); LYMPHOCYTES % 22.8 % (18.0-39.1); MEAN CORPUSCULAR HGB CONC 33.2 g/dL (31-35); MEAN CORPUSCULAR VOLUME 111.4 fL (81-99); MONOCYTES # (AUTO) 0.4 (0.2-0.8); MONOCYTES % 6.3 % (4.4-11.3); NEUTROPHILS # (AUTO) 3.8 (2.1-6.9); NEUTROPHILS % 67.8 % (38.7-80.0); PLATELET COUNT 92 x10e3/uL (140-360); RED BLOOD COUNT 3.16 x10e6/uL (3.6-5.1); RED CELL DISTRIBUTION WIDTH 13.6 % (11.7-14.4)
[2019-07-29 05:54] LABS: ALANINE AMINOTRANSFERASE 24 IU/L (0-55); ALBUMIN 2.7 g/dL (3.5-5.0); ALKALINE PHOSPHATASE 173 IU/L (40-150); BLOOD UREA NITROGEN 6 mg/dL (7-26); BUN/CREATININE RATIO 10 (6-25); CARBON DIOXIDE 27 mmol/L (22-29); CHLORIDE 104 mmol/L (98-107); CREATININE, SERUM 0.63 mg/dL (0.57-1.11); EST GLOMERULAR FILTRATION RATE > 60 ML/MIN (60-); GLUCOSE 66 mg/dL (74-118); MAGNESIUM 2.1 MG/DL (1.3-2.1); PHOSPHORUS 2.5 MG/DL (2.3-4.7); SODIUM 138 mmol/L (136-145)
[2019-07-29 06:15] LABS: AMYLASE 30 U/L (25-125); LIPASE 42 U/L (8-78)
--- NOTE | 2019-07-29 07:00 | NUR ---
BEDSIDE SHIFT REPORT RECEIVED FROM TROLLEY CLEANER RN. PT DENIES NEEDS AT THIS TIME.
[2019-07-29] MEDS: PANTOPRAZOLE 40 MG 10ML VIAL IV SCH (08:22)
[2019-07-29] MEDS: TOPIRAMATE 25 MG TAB PO SCH (08:22)
--- NOTE | 2019-07-29 12:04 | NUR ---
GAVE PACKET OF INFORMATION WITH [facility] [employer] FOR ASSISTANCE WITH LOW TO NO INCOME TO PATIENT. RESOURCES THAT PATIENT MAY BE ABLE TO FOLLOW UP UPON DISCHARGE. PT EDUCATED ON EACH RESOURCE AND UNDERSTANDING HOW TO FOLLOW UP TO SEE IF QUALIFIED FOR EACH RESOURCE.
[2019-07-29] MEDS: NICOTINE 21 MG/EA PATCH TOP SCH (13:21)
--- NOTE | 2019-07-29 21:00 | NUR ---
PATIENT IS RESTING IN BED IN STABLE CONDITION, NO SIGNS OF DISTRESS NOTED. IV FLUIDS ARE RUNNING AT ORDERED RATE AND PATIENT VOICES PAIN AT A LEVEL OF 5 AND WAS MEDICATED ORDERED. PATIENT VOICES CONCERN OF CONSTIPATION AND WAS TOLD THAT WE WOULD FOLLOW UP WITH GASTROLOGY TO ADDRESS CONCERNS. BED IS IN LOWEST POSITION, BOTH SIDE RAILS ARE UP, CALL LIGHT IS WITHIN EASY REACH, WILL CONTINUE TO MONITOR.
[2019-07-29] MEDS: ONDANSETRON HCL INJ 2MG/ML 2ML 2 MG/ML VIAL IV PRN (21:08)
[2019-07-29] MEDS: MIRTAZAPINE 15 MG TAB PO SCH (21:08)
[2019-07-30] VITALS (7 sets, daily range): BP systolic 124–167; BP diastolic 90–109
[2019-07-30] MEDS ORDERED: POLYETHYLENE GLYCOL 3350 17 GM PACK PO ONE ×2 (00:30→19:00)
[2019-07-30] MEDS: THIAMINE HCL IV SCH ×4 (00:48→19:25)
[2019-07-30] MEDS: MULTIVITAMINS IV SCH ×4 (00:48→19:25)
[2019-07-30] MEDS: HYDRALAZINE HCL 20 MG/ML VIAL IV PRN ×2 (00:48→21:20)
[2019-07-30] MEDS: [UNRECOGNIZED DRUG - OTHER] IV SCH ×4 (00:48→19:25)
[2019-07-30] MEDS: FOLIC ACID IV SCH ×4 (00:48→19:25)
[2019-07-30] MEDS: MORPHINE SULFATE INJ 4 MG/ML INJ 1ML IV PRN ×2 (01:05→05:22)
[2019-07-30] MEDS: ALBUTEROL/IPRATROPIUM 3 ML NEB NEB SCH ×4 (03:00→19:57)
[2019-07-30 05:41] LABS: BASOPHILS % 0.4 % (0.0-1.0); EOSINOPHILS # (AUTO) 0.1 (0.0-0.4); HEMATOCRIT 36.7 % (34.2-44.1); HEMOGLOBIN 11.9 g/dL (12.0-16.0); LYMPHOCYTES # (AUTO) 1.5 (1.0-3.2); LYMPHOCYTES % 26.5 % (18.0-39.1); MEAN CORPUSCULAR HEMOGLOBIN 36.8 pg (28-32); MEAN CORPUSCULAR HGB CONC 32.4 g/dL (31-35); MEAN CORPUSCULAR VOLUME 113.6 fL (81-99); MONOCYTES # (AUTO) 0.3 (0.2-0.8); MONOCYTES % 5.8 % (4.4-11.3); NEUTROPHILS # (AUTO) 3.6 (2.1-6.9); NEUTROPHILS % 64.9 % (38.7-80.0); PLATELET COUNT 102 x10e3/uL (140-360); RED BLOOD COUNT 3.23 x10e6/uL (3.6-5.1); RED CELL DISTRIBUTION WIDTH 13.9 % (11.7-14.4)
[2019-07-30 06:01] LABS: ALANINE AMINOTRANSFERASE 27 IU/L (0-55); ALBUMIN 2.9 g/dL (3.5-5.0); ALBUMIN/GLOBULIN RATIO 0.9 (0.8-2.0); ALKALINE PHOSPHATASE 234 IU/L (40-150); ANION GAP 11.5 mmol/L (8-16); BLOOD UREA NITROGEN < 5 mg/dL (7-26); CALCIUM 7.5 mg/dL (8.4-10.2); CARBON DIOXIDE 27 mmol/L (22-29); CHLORIDE 104 mmol/L (98-107); CREATININE, SERUM 0.64 mg/dL (0.57-1.11); EST GLOMERULAR FILTRATION RATE > 60 ML/MIN (60-); GLUCOSE 71 mg/dL (74-118); MAGNESIUM 1.8 MG/DL (1.3-2.1); POTASSIUM 3.5 mmol/L (3.5-5.1); SODIUM 139 mmol/L (136-145)
[2019-07-30 06:17] LABS: BUN/CREATININE RATIO 8 (6-25)
--- NOTE | 2019-07-30 07:14 | NUR ---
Assumed care for patient. Patient resting in bed. Awake alert oriented x4. Acyanotic. No distress noted. Call light in reach. Siderails up x2. Bed low and locked.
[2019-07-30] MEDS ORDERED: MAGNESIUM SULF 1GRAM/DEXTROSE 100 ML IV ONE (08:40)
[2019-07-30] MEDS: NICOTINE 21 MG/EA PATCH TOP SCH (09:19)
[2019-07-30] MEDS: PANTOPRAZOLE 40 MG 10ML VIAL IV SCH (09:19)
[2019-07-30] MEDS: TOPIRAMATE 25 MG TAB PO SCH (09:19)
[2019-07-30] MEDS ORDERED: POTASSIUM CHLORIDE 20 MEQ TAB CR PO ONE (10:40)
[2019-07-30] MEDS: ACETAMINOPHEN 325 MG TAB PO PRN ×2 (11:27→19:02)
--- NOTE | 2019-07-30 19:27 | NUR ---
Report given to TOMASZ Manuel. Pt resting in bed. AAOx3. Acyanotic. No distress noted.
[2019-07-30] MEDS: MIRTAZAPINE 15 MG TAB PO SCH (21:20)
--- NOTE | 2019-07-30 21:20 | NUR ---
PATIENT IS RESTING IN BED IN STABLE CONDITION, NO SIGNS OF DISTRESS NOTED. IV FLUIDS ARE RUNNING AT ORDERED RATE AND PATIENT VOICES PAIN AT A LEVEL OF 2 AND WAS MEDICATED PREVIOUSLY ORDERED. PATIENT TOLERATING GI SOFT DIET SUCCESSFULLY AND IS STILL AWAITING BOWEL MOVEMENT BED IS IN LOWEST POSITION, BOTH SIDE RAILS ARE UP, CALL LIGHT IS WITHIN EASY REACH, WILL CONTINUE TO MONITOR.
[2019-07-31] VITALS (7 sets, daily range): BP systolic 144–175; BP diastolic 96–106
[2019-07-31] MEDS: ALBUTEROL/IPRATROPIUM 3 ML NEB NEB SCH ×4 (00:55→19:53)
[2019-07-31] MEDS ORDERED: BISACODYL 5 MG TAB EC PO ONE (01:00)
[2019-07-31] MEDS ORDERED: BISACODYL 10 MG SUPP PR ONE ×2 (01:15)
[2019-07-31 05:28] LABS: BASOPHILS % 0.5 % (0.0-1.0); EOSINOPHILS # (AUTO) 0.1 (0.0-0.4); EOSINOPHILS % 2.2 % (0.0-6.0); HEMATOCRIT 37.3 % (34.2-44.1); HEMOGLOBIN 12.3 g/dL (12.0-16.0); LYMPHOCYTES % 24.6 % (18.0-39.1); MEAN CORPUSCULAR HEMOGLOBIN 36.9 pg (28-32); MONOCYTES # (AUTO) 0.4 (0.2-0.8); MONOCYTES % 9.1 % (4.4-11.3); NEUTROPHILS # (AUTO) 2.6 (2.1-6.9); NEUTROPHILS % 63.4 % (38.7-80.0); PLATELET COUNT 143 x10e3/uL (140-360); RED BLOOD COUNT 3.33 x10e6/uL (3.6-5.1); RED CELL DISTRIBUTION WIDTH 14.2 % (11.7-14.4)
[2019-07-31 05:48] LABS: ALANINE AMINOTRANSFERASE 24 IU/L (0-55); ALBUMIN 2.9 g/dL (3.5-5.0); ALBUMIN/GLOBULIN RATIO 0.9 (0.8-2.0); ALKALINE PHOSPHATASE 197 IU/L (40-150); BLOOD UREA NITROGEN < 2 mg/dL (7-26); BUN/CREATININE RATIO 4 (6-25); CALCIUM 8.4 mg/dL (8.4-10.2); CARBON DIOXIDE 27 mmol/L (22-29); CHLORIDE 104 mmol/L (98-107); CREATININE, SERUM 0.56 mg/dL (0.57-1.11); EST GLOMERULAR FILTRATION RATE > 60 ML/MIN (60-); GLUCOSE 119 mg/dL (74-118); MAGNESIUM 1.8 MG/DL (1.3-2.1); PHOSPHORUS 1.7 MG/DL (2.3-4.7); SODIUM 137 mmol/L (136-145)
[2019-07-31] MEDS: FOLIC ACID IV SCH ×3 (06:33→19:11)
[2019-07-31] MEDS: MULTIVITAMINS IV SCH ×3 (06:33→19:11)
[2019-07-31] MEDS: [UNRECOGNIZED DRUG - OTHER] IV SCH ×3 (06:33→19:11)
[2019-07-31] MEDS: THIAMINE HCL IV SCH ×3 (06:33→19:11)
[2019-07-31] MEDS: TOPIRAMATE 25 MG TAB PO SCH (08:59)
[2019-07-31] MEDS: POLYETHYLENE GLYCOL 3350 17 GM PACK PO SCH ×2 (09:05→19:11)
[2019-07-31] MEDS: PANTOPRAZOLE 40 MG 10ML VIAL IV SCH (09:05)
[2019-07-31] MEDS: NICOTINE 21 MG/EA PATCH TOP SCH (09:05)
--- NOTE | 2019-07-31 19:07 | NUR ---
WALKING ROUNDS COMPLETE, REPORT HANDED OFF TO ON COMING NURSE.
--- NOTE | 2019-07-31 19:07 | NUR ---
Received bedside report from day nurse. Patient awake and resting in bed, no s/s of distress at this time. All safety measures in place. Family at bedside. Will continue to monitor.
[2019-07-31] MEDS: MIRTAZAPINE 15 MG TAB PO SCH (21:00)
--- NOTE | 2019-07-31 23:11 | NUR ---
Dr. Zuleta on unit, says patient is okay to discharge home.
[2019-08-01 00:16] VITALS: BP 147/93
[2019-08-01] MEDS: ALBUTEROL/IPRATROPIUM 3 ML NEB NEB SCH ×2 (01:00→07:00)
[2019-08-01] MEDS: ACETAMINOPHEN 325 MG TAB PO PRN (01:43)
--- NOTE | 2019-08-01 02:02 | NUR ---
Farshad Mcclain HOUSEKEEPING ASSOCIATE here to see patient. Received orders to DC fluids after current banana bag is completed. Plan to DC patient home today.
[2019-08-01 06:03] VITALS: BP 139/89
--- NOTE | 2019-08-01 07:05 | NUR ---
Bedside report given to day nurse. Patient awake and resting in bed, no s/s of distress at this time. All safety measures in place.
[2019-08-01 08:00] VITALS: BP 157/95
[2019-08-01 08:53] VITALS: BP 157/95
[2019-08-01] MEDS: TOPIRAMATE 25 MG TAB PO SCH (10:20)
[2019-08-01] MEDS: NICOTINE 21 MG/EA PATCH TOP SCH (10:20)
[2019-08-01] MEDS: PANTOPRAZOLE 40 MG 10ML VIAL IV SCH (10:20)
[2019-08-01] MEDS: POLYETHYLENE GLYCOL 3350 17 GM PACK PO SCH (10:20)
[2019-08-01] MEDS ORDERED: K-PHOS NEUTRAL250 MG PO (11:35)
[2019-08-01] MEDS ORDERED: TOPAMAX25 MG PO (11:35)
--- NOTE | 2019-08-01 13:30 | NUR ---
PT DISCHARGED HOME WITH FAMILY MEMBER, PT WAS GIVEN HER PRESCRIPTIONS ND HER AND FAMILY MEMBER WAS EDUCATED ON THE MEDICATION, PT STATED UNDERSTANDING, PT IV SITE WAS REMOVED AT THIS TIME, NO SWELLING NO REDNESS TO SITE.
--- NOTE | 2019-08-02 03:08 | Discharge Summary ---
CHIEF COMPLAINT: Abdominal pain. HISTORY OF PRESENT ILLNESS: Ms. Coelho is a 49-year-old female with complaints of abdominal pain and constipation, which started the Friday morning prior to arrival on July 24 when she woke up, which she states was like "stabbing knife pains," which was "20/10" on a 0-10 pain scale at the time it started along with night sweats. She took 2 Tylenol PM in an effort to get some sleep, however, was unsuccessful. She had been having nausea and vomiting since the Friday prior to admission, off and on. PAST MEDICAL HISTORY: Includes pancreatitis, right lower lobe pneumonia, gastroesophageal reflux disease, transaminitis, gastritis with nausea, hypocalcemia, anemia, mild distal esophagitis, small sliding hiatal hernia, alcohol abuse, fatty liver, anxiety, COPD, iron deficiency. PAST SURGICAL HISTORY: Eye surgery as a , , tubal ligation bilaterally, ectopic removal in 03/19/2018, EGD with biopsies. FAMILY HISTORY: Mother had breast cancer as well as a stroke. Uncle has had cancer. Aunt had breast cancer. Aunt had lung cancer. SOCIAL HISTORY: She smokes a pack and half a day since age 17, 32 years x 1.5 pack per day or about 48 pack-years. She states she drinks 4-5 mixed drinks along with shots 4-5 days out of the week. ALLERGIES: NO KNOWN ALLERGIES. ADMITTING DIAGNOSES: 1. Acute alcoholic pancreatitis, present on arrival. 2. Alcohol abuse, transaminitis, esophagitis, gastritis, fatty liver. 3. Metabolic encephalopathy, altered mental status from baseline, likely due to acute alcoholic pancreatitis. 4. History of anemia with iron deficiency, acute dehydration with hemoconcentration. 5. Chronic obstructive pulmonary disease without exacerbation, active smoker with 48 pack-years of smoking. 6. [id number] abdominal pain due to acute alcoholic pancreatitis. 7. Acute nausea and vomiting. 8. Gastroesophageal reflux disease. DISCHARGE DIAGNOSES: 1. Acute alcoholic pancreatitis, present on arrival. 2. Alcohol abuse, transaminitis, esophagitis, gastritis, fatty liver. 3. Metabolic encephalopathy, altered mental status from baseline, likely due to acute alcoholic pancreatitis. 4. History of anemia with iron deficiency, acute dehydration with hemoconcentration. 5. Chronic obstructive pulmonary disease without exacerbation, active smoker with 48 pack-years of smoking. 6. [id number] abdominal pain due to acute alcoholic pancreatitis. 7. Acute nausea and vomiting. 8. Gastroesophageal reflux disease. 9. Mild acute hypomagnesemia and acute hypophosphatemia. LABORATORY DATA: On admission, WBCs 11.75, hemoglobin 18.2, hematocrit 50.1, platelets 156. Sodium 136, potassium 4.0, BUN 9, creatinine 0.81, estimated GFR greater than 60, total bilirubin 1.8, AST 78, ALT 27, alkaline phosphatase 99, lipase 643. She had one set of cardiac enzymes and cardiac biomarkers were negative. TSH 4.917. Hemoglobin A1c 5.3% on July 27. Ammonia level 47. Final lipase 43. Amylase 30. Today on the day of discharge, sodium 137, potassium 4.0, BUN less than 2, creatinine 0.56, GFR greater than 60. Calcium 8.4, magnesium of 1.8. Phosphorus 1.7, total bilirubin 0.8, AST 32, ALT 24, alkaline phosphatase 197. Total protein 6.3, albumin 2.9. WBCs 4.07, hemoglobin 12.3, hematocrit 37.3, platelets 143. Ethyl alcohol level less than [address] of the abdomen and pelvis done on July 26 had shown inflammatory changes of the pancreas and duodenum, similar to the prior study, hepatic steatosis. CT of the brain showed no intracranial abnormalities. Consultations included Dr. Jermaine Zuleta and Dr. Junito Jeronimo. Initially, the patient was n.p.o., received 3 L of fluid in the ER, was on a banana bag through most of her stay. Electrolytes and lipase were monitored and she received IV pain medication for pain control. Her abdominal pain gradually improved and lipase improved as well. Clear liquid diet was started at lunch on July 28. Abdominal pain 3/10 at that time. She did have some bloating and flatus along with constipation. She received laxatives and this improved. She did have a bowel movement after Dulcolax suppository. The patient has been spoken to through long discussion by Dr. Zuleta as well as myself the importance of stopping drinking. Apparently, she had stopped for some time, but started again, which exacerbated her issues. I reminded the patient this morning that she should not drink any alcohol whatsoever and she agreed that she would not. She is being sent home well hydrated. Her phosphorus is low at 1.7. Prescription for K-Phos Neutral tablet 250 mg p.o. daily for 10 days as well as Topamax for headaches. Continue GI soft diet, advance as tolerated. Activity level as tolerated. Follow up with Dr. Zuleta and Dr. Jeronimo as directed and follow up with PCP, Dr. Harkins in 1-2 weeks. Dictated by Farshad Mcclain, GALILEO MD HUONG ChaudharyP/MODL /[id number]
[2019-08-02] MEDS ORDERED: PHOSPHORUS 250 MG TAB PO SCH (09:00)
--- NOTE | 2019-08-02 12:15 | Progress Note ---
DATE: 07/29/2019 Psychiatric Progress Note SUBJECTIVE: The patient evaluated, events. The patient is in the room. She is alert, awake, and oriented to situation. She is calm. She denies any depression. Denies anxiety. Denies any hallucinations. She denies any suicidal ideation. She reports sleeping well. Denies any side effects from medication. ASSESSMENT: 1. Adjustment disorder with mixed mood. 2. Alcohol abuse/dependency. PLAN: 1. Continue her current medication. 2. Supportive therapy. Dictated by Yuridia Olivera PA-C Junito Jeronimo MD QTV/MODL /[id number]
--- NOTE | 2019-08-02 12:15 | Progress Note ---
DATE: 07/30/2019 Psychiatric Progress Note SUBJECTIVE: The patient evaluated and events noted. The patient is in the room. She is alert, awake, and oriented to situation. She is calm and cooperative. She denies any depression. Denies any anxiety. Denies any hallucination. Denies any side effects from medication. ASSESSMENT: 1. Adjustment disorder with mixed mood. 2. Alcohol abuse/dependency. PLAN: 1. Supportive therapy. 2. Continue with medication . 3. Monitor for mood. Dictated by Yuridia Olivera PA-C Junito Jeronimo MD QTV/MODL /[id number]
== END 2019-08-01 13:30 | disposition home or self-care (01) | DRG 438 ==
LOC: ER 00:04 → ERHOLD 05:55 → MED/SURG 16:17
PROVIDERS: ADMIT Internal Medicine; ATTEND Internal Medicine
DX: K85.20 Alcohol induced acute pancreatitis without necrosis or infection (principal); G93.41 Metabolic encephalopathy; D50.9 Iron deficiency anemia, unspecified; K21.9 Gastro-esophageal reflux disease without esophagitis; R74.0 Nonspecific elevation of levels of transaminase and lactic acid dehydrogenase [LDH]; K20.9 Esophagitis, unspecified; K29.70 Gastritis, unspecified, without bleeding; F17.210 Nicotine dependence, cigarettes, uncomplicated; F10.20 Alcohol dependence, uncomplicated; F43.23 Adjustment disorder with mixed anxiety and depressed mood; I10 Essential (primary) hypertension; D69.6 Thrombocytopenia, unspecified; K70.0 Alcoholic fatty liver; E88.09 Other disorders of plasma-protein metabolism, not elsewhere classified; E86.0 Dehydration; E83.42 Hypomagnesemia; E83.39 Other disorders of phosphorus metabolism; E87.6 Hypokalemia; R53.1 Weakness; K59.00 Constipation, unspecified; Z80.3 Family history of malignant neoplasm of breast; Z82.3 Family history of stroke; Z80.1 Family history of malignant neoplasm of trachea, bronchus and lung; J44.9 Chronic obstructive pulmonary disease, unspecified
CPT/HCPCS: 36415; 70450; 74177; 80053; 80061; 80307; 80320; 81001; 81025; 82140; 82150; 82550; 82553; 82948; 83036; 83690; 83735; 84100; 84443; 84484; 85025; 93005; 94640; 96361; 96374; 96375; 99285; J0360; J1885; J2060; J2270; J2405; J3411; J3475; J7030; J7050; Q9967